=== PATIENT | female | born 1945 | race Caucasian/White ===

== ENCOUNTER 2018-02-02 14:54 | Emergency (ER) | payer MEDICARE, OTHER ==
[~2018-02-02] VITALS: Ht 162.5 cm; Wt 68.0 kg
[2018-02-02] MEDS ORDERED: MYCOLOG CREAM 115 GM T (17:11)
== END 2018-02-02 17:14 | disposition home or self-care (01) ==
LOC: ED 14:54
DX: K94.09 Other complications of colostomy (principal); L30.9 Dermatitis, unspecified

== ENCOUNTER 2018-03-23 13:37 | Inpatient (IN) | payer MEDICARE, OTHER ==
[~2018-03-23] VITALS: Ht 162.5 cm; Wt 78.9 kg
--- NOTE | ~2018-03-23 | EKG ---
[place], [place] ELECTROCARDIOGRAM REPORT NAME: FLAVIO MALLOY UNIT #: [id number] ROOM: 412 DOCTOR: BRANDI DRAFT REPORT BIRTHDATE: [birth year] [facility] Test Date: 2018-03-24 Test Time: 00:52:39 Pat Name: FLAVIO MALLOY Department: Room: [facility] 1 Gender: F [employer] Assistant: Laurie Moore : 1945 Requested By: ADRYAN GUARDADO Order Number: [id number] Reading MD: Kendrick Rosario MD Measurements Intervals [place] Rate: 135 P: DC: QRS: -35 QRSD: 94 T: 87 QT: 387 QTc: 581 Interpretive Statements Atrial fibrillation Inferior infarct, old Prolonged QT interval Electronically Signed On 03-24-2018 10:51:43 PST by Kendrick Rosario MD CM:EKGRPT:ELECTROCARDIOGRAM REPORT 0052 1051 ADRYAN PATE DRAFT REPORT ADRYAN GUARDADO DO
--- NOTE | ~2018-03-23 | PR ---
[place], [place] PROGRESS NOTE NAME: FLAVIO MALLOY UNIT #: [id number] ROOM: 412 DOCTOR: YUDI CARMONA MD BIRTHDATE: [birth year] DOS: 03/27/2018 NEPHROLOGY PROGRESS NOTE REASON FOR FOLLOWUP: Acute kidney injury. SUBJECTIVE: She is doing well. She is still on IV fluids, but reducing. Her weight is up and her renal function has normalized. White blood cell count remains mildly up and hemoglobin is down. Discussions for transfusion are underway. Carbon dioxide still remains low at 14. Potassium is well controlled but creatinine is 0.89, which is the lowest it has been in some time. She does not report any nausea, vomiting or diarrhea at this time. Family is at the bedside. Her niece is encouraging her to eat, but still of little benefit. PHYSICAL EXAMINATION: VITAL SIGNS: Blood pressure 110/64, respiratory rate 18, pulse 82, temperature 98.8. GENERAL: Age appropriate woman lying in bed, multiple wounds, cannot be fully assessed on her back. HEENT: Oral mucous membranes are moist. Normocephalic, atraumatic. SKIN: Turgor is improving. LUNGS: Sound slightly diminished. No wheeze. CARDIOVASCULAR: Regular rate. Mild edema and third spacing has developed. Colostomy bag present. ABDOMEN: Otherwise, soft, no rigidity noted. EXTREMITIES: No clubbing, cyanosis or erythema. LABORATORIES AND DIAGNOSTICS: Sodium 138, potassium 4.1, chloride 111, bicarbonate 14, BUN 24, creatinine 0.89, glucose 172, alkaline phosphatase 722, albumin 2.1. White blood cell count 14.6, hemoglobin 7.8, platelets 314. ASSESSMENT AND PLAN: Acute kidney injury on questionable chronic kidney disease, this has improved with IV fluids. I suspect that she was chronically prerenal because of poor intake. Avoid hypotension, avoid nephrotoxic medications. Avoid SHAMIKA inhibitors or ARBs. Monitor ostomy losses and encourage oral intake and appetite stimulant. Also consider psychiatric consultation if not done. No other nephrologic recommendations at this time. [place], [place] PROGRESS NOTE NAME: FLAVIO MALLOY UNIT #: [id number] ROOM: 412 DOCTOR: YUDI CARMONA MD BIRTHDATE: [birth year] YUDI CARMONA MD CM:AUSTYN 1609 YUDI CARMONA MD 03/28/18 1918 interface
--- NOTE | ~2018-03-23 | PN ---
[place], [place] PROGRESS NOTE NAME: FLAVIO MALLOY UNIT #: [id number] ROOM: 412 DOCTOR: RAJAT BROWN DPM BIRTHDATE: [birth year] DATE: 04/01/18 ADDENDUM TO RESIDENT PROGRESS NOTE: I reviewed with the resident and I am in agreement. RAJAT BROWN DPM CM:PNTRANS 1100 [id number] RAJAT BROWN DPM 07/06/18 0603 DIONISIO FLETCHER MIS.LLR
--- NOTE | ~2018-03-23 | CON ---
[place], [place] REPORT OF CONSULTATION NAME: FLAVIO MALLOY UNIT #: [id number] ROOM: 412 DOCTOR: MENG CHAKRABORTY DPM BIRTHDATE: [birth year] DOS: 03/24/2018 PODIATRY CONSULTATION SUBJECTIVE: This patient is seen as consulted for evaluation of wounds on her great toes as well as her heels. The caregiver with the patient states that she has had dry skin in those areas and they have been applying moisturizing lotion. She states she does have a history of a blood clot in her right leg that according to the caregiver was removed. The patient is somewhat of a poor historian at this point and I got most of the history from her caregiver. PAST MEDICAL HISTORY: Positive for chronic kidney disease, colostomy complication, type 2 diabetes, history of DVT, hyperlipidemia, hypertension, ulcerative colitis. ALLERGIES: No known drug allergies. CURRENT MEDICATIONS: Include Levaquin, Lopressor, Zosyn, heparin, DuoNeb, Zocor, Humalog, vancomycin, Restoril, [place]. OBJECTIVE: Upon lower extremity physical examination, DP pedal pulse is palpable, but PT pedal pulse is barely palpable. There is some rubor noted at the toes with dependency and pallor upon elevation. Skin temperature is cool to toes. There is diminished hair growth noted on both feet. Sensation appears decreased bilaterally. There are superficial open wounds noted at the distal portion of the great toes as well as plantar posterior heels bilaterally. There is some mild eschar in the area, but the wounds are small and did not appear infected. There is no edema or drainage noted. They are dry. There is some dry skin noted throughout both feet. ASSESSMENT: Diabetes mellitus with diabetic ulcer, distal great toe bilaterally as well as bilateral heels. PLAN: Consult is performed. Agree with wound care as prescribed according to wound care recommendation. I will order arterial studies of both lower extremities to evaluate for PAD, offload the heels appropriately. The wounds are not infected at this time. We will reevaluate her tomorrow. Thank you for the opportunity to take part in the care of this patient. [place], [place] REPORT OF CONSULTATION NAME: FLAVIO MALLOY UNIT #: [id number] ROOM: 412 DOCTOR: MENG CHAKRABORTY DPM BIRTHDATE: [birth year] MENG CHAKRABORTY DPM CM:CONSTR:REPORT OF CONSULTATION 1256 03/24/18 7420 interface
--- NOTE | ~2018-03-23 | EKG ---
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
--- NOTE | ~2018-03-23 | PR ---
[place], [place] PROGRESS NOTE NAME: FLAVIO MALLOY UNIT #: [id number] ROOM: 412 DOCTOR: MATHEW BUNDYYUDI Eleno BIRTHDATE: [birth year] DOS: 03/26/2018 NEPHROLOGY PROGRESS NOTE SUBJECTIVE: The patient does not appear herself. Again, her family members are at the bedside and reported that earlier in the day, she was more talkative, but does not appear to be doing this. She has some staring episodes, almost with some dyskinetic movements and almost appears like she does answer very limited to questioning. IV fluids are running. Intake and output do not appear complete, however, as I did give her boluses of albumin yesterday, which do not seem to have been charted. She also does not have all of her ostomy output charted. There was 200 noted overnight, but nothing yet for day shift. No other weights have been ordered or recorded. OBJECTIVE: VITAL SIGNS: 110/62 which is significantly better than yesterday's values as low as 80/58 but overnight did drop into the 90s/50s. She is afebrile, heart rates in the 70s, respiratory rate 18. GENERAL: Chronically ill appearing, lying in bed, deconditioned. She does not appear to be in any respiratory distress, however, is lying down. Speech is limited. Insight is limited. HEART: Irregularly irregular, mild scattered rhonchi. NECK: No JVD or bruits. No appreciable edema is present. SKIN: Otherwise, warm without diffuse rashes. LABORATORY DATA AND DIAGNOSTICS: White blood cell count 14.1, down trending still slowly; hemoglobin 8, also down trending; platelets 313, also down trending. Sodium 135, trending up; potassium 3.8, chloride 107, bicarbonate 16, BUN 30, creatinine 1.0, calcium 8.4. ASSESSMENT AND PLAN: Acute kidney injury in the past, now improving. Some mild chronic kidney disease was possible, but it seems that she might have been just chronically dehydrated and had a prolonged prerenal state. Sediment was unremarkable. IV fluids to keep her blood pressure supported and keep her MAP greater than 65-70 and keep systolics greater than 100. Avoid significant antihypertensive medications. Avoid nephrotoxic medications. GI is following. Monitor ostomy losses and encourage intake and perhaps a dietary supplement or appetite stimulant, may be reasonable. Also psychiatric or neurologic consultation if not already done. There are no further nephrologic recommendations. [place], [place] PROGRESS NOTE NAME: FLAVIO MALLOY UNIT #: [id number] ROOM: [facility] DOCTOR: YUDI CARMONA MD BIRTHDATE: [birth year] YUDI CARMONA MD CM:PNTRANS 02 YUDI CARMONA MD 03/27/18 0055 interface
--- NOTE | ~2018-03-23 | CON ---
[place], [place] REPORT OF CONSULTATION NAME: FLAVIO MALLOY UNIT #: [id number] ROOM: 412 DOCTOR: LUISITO LAN MD BIRTHDATE: [birth year] DOS: HISTORY OF PRESENT ILLNESS: This is a 72-year-old patient who was presented with hypertension, lethargy, failure to thrive, diabetes mellitus, ulcerative colitis, coronary artery disease and she has been protein calorie malnutrition. I have been asked for a possible PEG tube placement. PAST MEDICAL HISTORY: Colostomy and complication, chronic renal disease, diabetes mellitus and hypertension all reviewed. PAST SURGICAL HISTORY: Cholecystectomy, appendectomy, total colectomy, CABG, total knee prosthesis. SOCIAL HISTORY: Nonsmoker, nonalcohol consumer. FAMILY HISTORY: Noncontributory. ALLERGIES: No known medications. MEDICATIONS: Medication list has been reviewed including pantoprazole, sucralfate, amongst the other on iron supplementation. REVIEW OF SYSTEMS: In general, cannot be obtained from her. No cognitive participation. PHYSICAL EXAMINATION: VITAL SIGNS: Stable. HEENT: Head No normal as normocephalic, nontraumatic. Mouth and buccal mucosa dry. NECK: Supple, no thyromegaly. CHEST: Symmetric anatomy, equal expansion. Few scattered rhonchi. HEART: Normal sinus rhythm, no gallop, no murmur. ABDOMEN: Soft, no hepato-organomegaly plus ileostomy in place versus colostomy. Details of surgery not known to me. EXTREMITIES: Pedal edema, venous stasis. NEUROLOGIC: Alert and disoriented. LABORATORY DATA: Reviewed, records reviewed. Latest lab results have been reassessed. Latest Comprehensive metabolic panel, GFR greater than 60. Electrolytes borderline normal. Liver function test, alkaline phosphatase elevation. CBC: White blood cell 9, H and H 8 and 26, platelet count of 113. All has been noticed. CT scan of the abdomen and pelvis has been reviewed. No acute pathology has been reported. IN SUMMARY: Multiple ventral hernias, right small pleural effusion, nonobstructing stones in the kidneys, all has been recognized. PLAN AND DISCUSSION: We will proceed with PEG tube. [place], [place] REPORT OF CONSULTATION NAME: FLAVIO MALLOY UNIT #: [id number] ROOM: 412 DOCTOR: LUISITO LAN MD BIRTHDATE: [birth year] LUISITO LAN MD CM:CONSTR:REPORT OF CONSULTATION 1423 04/01/18 0459 interface
--- NOTE | ~2018-03-23 | PR ---
[place], [place] PROGRESS NOTE NAME: FLAVIO MALLOY UNIT #: [id number] ROOM: 412 DOCTOR: DANNY BUNDY,ALEXSANDRA BIRTHDATE: [birth year] DOS: 03/25/2018 REASON FOR VISIT: Hypertension, elevated troponin and atrial fibrillation. HISTORY OF PRESENT ILLNESS: The patient denies any chest pain or shortness of breath but she has some problems with dysphagia. She had upper endoscopy yesterday. Denies any chest pain or palpitations. No dizziness, no PND, orthopnea, no palpitations. REVIEW OF SYSTEMS: Review of the 8 systems negative except as mentioned above. RHYTHM STRIPS: The patient in atrial fibrillation with controlled ventricular rate. PHYSICAL EXAMINATION: VITAL SIGNS: Blood pressure 98/58, pulse 76, respiration rate is 14, weight 69.9 kilos. GENERAL: The patient is alert, comfort, no acute distress. HEENT: Pupils are round and equal. Tongue was moist. NECK: Supple, no distended neck veins, no carotid bruit. CHEST: Symmetrical, nontender. LUNGS: A few scattered rhonchi. HEART: Irregularly irregular, grade 1/6 systolic murmur. ABDOMEN: Nontender. Bowel sounds normal. EXTREMITIES: Showed no edema. Distal pulses are palpable. SKIN: Warm and dry. MEDICATIONS AND ALLERGIES: Reviewed. IMPRESSION: 1. Borderline elevation of troponin due to acute renal failure. 2. Atrial fibrillation with controlled ventricular rate. 3. Hypertension. Currently, blood pressure is low. 4. Anemia. 5. Pneumonia. 6. History of coronary artery disease. 7. Cardiomyopathy, EF 40% by 2D echo, no acute congestive heart failure. 8. Diabetes type 2. RECOMMENDATIONS: 1. Currently, blood pressure and heart rates are relatively stable. 2. We can resume her heparin. 3. We need to discuss with the family regarding long-term anticoagulation. The patient has a high CHADS-VASc score as well as high HAS-BLED score for bleeding. 4. Supplement potassium for her mild hypokalemia. 5. There is no family at bedside at the time of examination. 6. The patient had some trouble with swallowing the tablets. If she cannot take a p.o. medication, we need to switch them to IV medications tomorrow. [place], [place] PROGRESS NOTE NAME: FLAVIO MALLOY UNIT #: [id number] ROOM: [facility] DOCTOR: ALEXSANDRA DELGADO MD BIRTHDATE: [birth year] ALEXSANDRA DELGADO MD CM:AUSTYN 22 5 ALEXSANDRA DELGADO MD 03/26/1825 interface
--- NOTE | ~2018-03-23 | CON ---
[place], [place] REPORT OF CONSULTATION NAME: FLAVIO MALLOY UNIT #: [id number] ROOM: 412 DOCTOR: LUISITO LAN MD BIRTHDATE: [birth year] DOS: 03/24/2018 GASTROINTESTINAL CONSULTATION REPORT HISTORY OF PRESENT ILLNESS: A 72-year-old patient who presented with chief complaint of multi-distress, among which has been esophageal dysphagia with nausea sensation. PAST MEDICAL HISTORY: Chronic renal disease, diabetes mellitus, DVTs, hyperlipidemia, hypertension, and history of ulcerative colitis. PAST SURGICAL HISTORY: Colectomy, knee cap repair, total knee, appendectomy, cholecystectomy. FAMILY HISTORY: Noncontributory. ALLERGIES: No known medications. MEDICATIONS: Has been reviewed. The patient has been on sucralfate, iron supplementation, loperamide, and pantoprazole daily. REVIEW OF SYSTEMS: In general: HEENT: Denies double vision or blurred vision. RESPIRATORY: Admits some shortness of breath. CARDIOVASCULAR: Denies chest pain. DIGESTIVE SYSTEM: Dysphagia. PHYSICAL EXAMINATION: VITAL SIGNS: Stable, difficulty with communication in detail; however, participating. HEENT: Nontraumatic. Mouth and buccal mucosa dry. NECK: Supple, no thyromegaly, no cervical lymphadenopathy. CHEST: Symmetric anatomy, equal expansion. Few scattered rhonchi. HEART: Normal sinus rhythm, no gallop, no murmur. ABDOMEN: Soft. No hepato-organomegaly, status post previous colectomy, colostomy and complications, scars. Colostomy is functional. Bowel sounds present. EXTREMITIES: No pedal edema. Stasis dermatitis noticed. NEUROLOGIC: Alert, oriented. IMPRESSION: Dysphagia, ruling out the etiology of the patient is going to undergo EGD with balloon dilation and necessary management as the diagnosis defined by endoscopy. OTHER ADJUNCTIVE DIAGNOSES: As outlined in paragraph of past medical and surgical history as above. Supportive therapy otherwise today we are going to proceed with panendoscopy. INDICATIONS: The patient has presented with dysphagia, undergoing investigation. [place], [place] REPORT OF CONSULTATION NAME: FLAVIO MALLOY UNIT #: [id number] ROOM: 412 DOCTOR: LUISITO LAN MD BIRTHDATE: [birth year] PROCEDURE: Today's procedure part of investigation is panendoscopy plus balloon dilation of esophagus. PREMEDICATION: Propofol. SCOPE: Olympus forward-viewing gastroscope Q10 video. REPORT: After putting the patient in left lateral position and application of lubricant to the scope, scope was introduced. Thereafter, under direct visualization, advanced through the length of esophagus without difficulty. Cervical esophageal stricture, which is benign noticed as well. This continues at distal esophagus where there is a hiatal hernia noticed. Gastric pouch was entered. Gastritis seen. Duodenal bulb, second and third part within normal limits. A balloon size 20 was introduced into the gastric pouch and in inflated form, orally extracted. Highest resistance at distal esophagus and upper esophagus, particularly was noticed. Therefore, we were only able utilize to size 19 of the balloon 20. The patient tolerated the procedure well. IMPRESSION: Esophageal stricture, status post balloon dilation, gastritis, hiatal hernia. PLAN AND DISCUSSION: We are going to start him on soft diet to see if this is going to help her. Thank you very much indeed. Other workups are under investigation and evaluation. Case was discussed with the family, content with the findings and management. LUISITO LAN MD CM:CONSTR:REPORT OF CONSULTATION 1702 04/19/18 0750 interface
--- NOTE | ~2018-03-23 | PR ---
[place], [place] PROGRESS NOTE NAME: FLAVIO MALLOY UNIT #: [id number] ROOM: 412 DOCTOR: MENG CHAKRABORTY DPM BIRTHDATE: [birth year] DOS: 04/03/2018 SUBJECTIVE: This patient is seen today for continued followup of ulcerations both great toes and plantar posterior portion of her heels. She really has no complaints in regards to her feet. OBJECTIVE: Neurovascular status is unchanged. Mild dependent edema noted both lower extremities. Both great toes appear resolved at this time. Minimal eschar noted. Plantar posterior heels are stable with no signs of infection. No purulent drainage or malodor. No erythema or increased temperature. ASSESSMENT: Improving ulcerations, bilateral feet. PLAN: Evaluation and management. Continue with local care and offloading. The patient is improving with both feet. Continue to follow while in the hospital. MENG CHAKRABORTY DPM CM:AUSTYN 1137 1212 MENG CHAKRABORTY DPM 04/03/18 1213 interface
--- NOTE | ~2018-03-23 | PR ---
[place], [place] PROGRESS NOTE NAME: FLAVIO MALLOY UNIT #: [id number] ROOM: [facility] DOCTOR: RENATO MALDONADO MD BIRTHDATE: [birth year] DOS: 03/31/2018 CARDIOLOGY PROGRESS NOTE SUBJECTIVE: The patient was seen at her bedside this morning, 03/31/2018, for followup of her atrial fibrillation with mild elevation in troponin and pneumonia. The patient is still eating poorly and is scheduled to have a PEG tube placed today. She denies any chest pain, but does complain that she feels cold. She does have a dry cough. PHYSICAL EXAMINATION: VITAL SIGNS: Today, her pulse is 100 and irregularly irregular, blood pressure is 109/36. GENERAL: She is afebrile. She weighs 79 kg and has a body mass index of 29.9. NECK: Supple. There is no jugular distention. Carotids are full. LUNGS: Respirations are unlabored. She has decreased breath sounds at the bases. HEART: Has an irregularly irregular rhythm. There are no murmurs or gallops. EXTREMITIES: Showed no edema. LABORATORY DATA: Hemoglobin is 8.6, white count 9900, platelet count 313,000. Sodium is 135, potassium 3.4, BUN 16, creatinine 0.77. IMPRESSION: 1. Permanent atrial fibrillation with controlled ventricular response. 2. Anemia. 3. History of ulcerative colitis, status post partial colectomy. 4. Status post recent dilation of an esophageal stricture. 5. Poor oral intake. PEG tube pending. 6. Possible pneumonia. PLAN: She is to have the PEG tube placed today. After that, I would strongly consider adding a direct oral anticoagulant to her regimen since her CHADS-VASc score is 6 and she has a very high risk approaching 10% per year of stroke if she is not anticoagulated. Since she does have a history of colitis, we will have to monitor her anemia carefully, but I still think that a blood transfusion would be less risky than a stroke. We will probably have her start the anticoagulant day after her PEG tube placement. We will continue to follow her with her other physicians. I thank the hospitalist physicians for asking our advice regarding her care. [place], [place] PROGRESS NOTE NAME: FLAVIO MALLOY UNIT #: [id number] ROOM: 412 DOCTOR: RENATO MALDONADO MD BIRTHDATE: [birth year] RENATO MALDONADO MD CM:PNTRANS [id number] 0128 RENATO MALDONADO MD 04/03/18 1328 interface
--- NOTE | ~2018-03-23 | PR ---
[place], [place] PROGRESS NOTE NAME: FLAVIO MALLOY UNIT #: [id number] ROOM: 412 DOCTOR: RENATO MALDONADO MD BIRTHDATE: [birth year] DOS: 04/03/2018 CARDIOLOGY PROGRESS NOTE SUBJECTIVE: The patient was seen at her bedside today, 04/03/2018, for followup of atrial fibrillation and mild elevation in troponin in the setting of pneumonia. A PEG tube was placed on 03/31/2018 and she is tolerating enteral feedings. She is breathing easily. Her only complaint is that she has significant pain at the site of a sacral decubitus, which was debrided earlier today. She was started back on Xarelto on 04/01/2018 and is tolerating that well. PHYSICAL EXAMINATION: VITAL SIGNS: On exam today, her pulse is 82 and irregularly irregular. Blood pressure is 128/70. She is afebrile. NECK: Supple. She has no jugular distention. CHEST: Clear. HEART: Irregularly irregular rhythm. EXTREMITIES: Showed 1+ edema bilaterally. She does seem to be doing well from a cardiac standpoint and her atrial fibrillation is controlled. She is back on anticoagulants. Her problem list includes: 1. Permanent atrial fibrillation with controlled ventricular response. 2. History of ulcerative colitis, status post partial colectomy. 3. Anemia. 4. Status post recent dilation of the esophagus for treatment of an esophageal stricture. 5. Poor oral intake. The patient is receiving enteral feeding through a PEG tube that was inserted on 03/31/2018. 6. Possible pneumonia. PLAN: No other cardiac workup is planned at this time. We will remain available to see her as needed, but we will sign off for now. I thank the hospitalist physicians for asking our advice regarding her care. [place], [place] PROGRESS NOTE NAME: FLAVIO MALLOY UNIT #: [id number] ROOM: 412 DOCTOR: RENATO MALDONADO MD BIRTHDATE: [birth year] RENATO MALDONADO MD CM:PNTRANS 1515 0128 RENATO MALDONADO MD 04/04/18 1419 interface
--- NOTE | ~2018-03-23 | PR ---
[place], [place] PROGRESS NOTE NAME: FLAVIO MALLOY UNIT #: [id number] ROOM: 412 DOCTOR: RENATO MALDONADO MD BIRTHDATE: [birth year] DOS: 03/27/2018 CARDIOLOGY PROGRESS NOTE SUBJECTIVE: The patient was seen at her bedside today, 03/27/2018, with her niece in attendance. She is a 72-year-old woman who has a history of chronic kidney disease, diabetes, hypertension, hyperlipidemia, ulcerative colitis, and coronary artery disease. She was brought to the hospital due to poor oral intake, nausea, vomiting, and dyspnea. Her chest x-ray showed linear atelectasis, and she is being treated for pneumonia. She also does have worsening anemia. She did undergo an endoscopy on 03/24/2018 which showed esophageal stricture with hiatal hernia. Blood counts have been gradually falling, and she did require a transfusion on this admission. She also is noted to have atrial fibrillation, which has been labeled paroxysmal. She is not anticoagulated at this time. The patient states that she still has a minimally productive cough. She is quite weak. Her niece stays at home. She gets around with a walker, but slowly. PHYSICAL EXAMINATION: VITAL SIGNS: Today, her pulse is 82 and irregularly irregular. Blood pressure is 110/64. She is afebrile. NECK: Supple. She has no jugular distention. Carotids are full. LUNGS: Respirations are unlabored. She has coarse bibasilar breath sounds. HEART: Has an irregularly irregular rhythm. She has no murmurs or gallops. ABDOMEN: Benign. EXTREMITIES: Showed trace edema. IMPRESSION: 1. Atrial fibrillation with controlled ventricular response. 2. Anemia. 3. History of ulcerative colitis. 4. Status post recent dilation of an esophageal stricture. 5. Dysphagia. 6. Possible pneumonia. PLAN: I would continue supportive care for now. She will require extensive physical therapy to get her strength back. Once her hemoglobins have stabilized, we can decide whether or not she should be on long-term anticoagulation, but with her history of ulcerative colitis. This may be very problematic. We thank the hospitalist physicians for asking our advice regarding her care. [place], [place] PROGRESS NOTE NAME: FLAVIO MALLOY UNIT #: [id number] ROOM: 412 DOCTOR: RENATO MALDONADO MD BIRTHDATE: [birth year] RENATO MALDONADO MD CM:PNTRANS [id number] RENATO MALDONADO MD 03/27/182052 interface
--- NOTE | ~2018-03-23 | PN ---
[place], [place] PROGRESS NOTE NAME: FLAVIO MALLOY UNIT #: [id number] ROOM: 412 DOCTOR: RAJAT BROWN DPM BIRTHDATE: [birth year] DATE: 04/02/18 ADDENDUM TO RESIDENT PROGRESS NOTE: I reviewed with the resident and I am in agreement. RAJAT BROWN DPM CM:PNTRANS [id number] RJAAT BROWN DPM 07/06/18 0604 DIONISIO FLETCHER MIS.LLR
--- NOTE | ~2018-03-23 | PR ---
[place], [place] PROGRESS NOTE NAME: FLAVIO MALLOY UNIT #: [id number] ROOM: 412 DOCTOR: SHANNAN MCKINNEY DPM BIRTHDATE: [birth year] DOS: 03/25/2018 SUBJECTIVE: The patient was seen for followup of ulcerations to the bilateral heels, superficial in nature on bilateral hallux, superficial eschar. No signs of fluctuance. No erythema or drainage. ASSESSMENT: Diabetic ulcerations, bilateral hallux and bilateral heels PLAN: Evaluation and management. Continue offloading and conservative care. We will reappoint with the patient accordingly. SHANNAN MCKINNEY DPM CM:AUSTYN [phone] SHANNAN MCKINNEY DPM 03/25/18 1118 interface
--- NOTE | ~2018-03-23 | PR ---
[place], [place] PROGRESS NOTE NAME: FLAVIO MALLOY UNIT #: [id number] ROOM: 412 DOCTOR: RENATO MALDONADO MD BIRTHDATE: [birth year] DOS: 04/01/2018 CARDIOLOGY PROGRESS NOTE SUBJECTIVE: The patient was seen at her bedside today 04/01/2018 for followup of her atrial fibrillation with mild elevation in troponin and pneumonia. A PEG tube was placed on 03/31/2018 and the patient tolerated the procedure well. She is now receiving feedings through the PEG tube. She is breathing easily and has no apparent complaints. PHYSICAL EXAMINATION: VITAL SIGNS: Her pulse is 67 and irregularly irregular. Blood pressure is 104/57. She is afebrile. NECK: Supple. She has no jugular distention. Carotids are full. LUNGS: Respirations are unlabored. Her chest is clear. HEART: Has an irregularly irregular rhythm without murmurs or gallops. EXTREMITIES: Showed no edema. IMPRESSION: 1. Permanent atrial fibrillation with controlled ventricular response. 2. History of ulcerative colitis, status post partial colectomy. 3. Anemia. 4. Status post recent dilation of esophageal stricture. 5. Poor oral intake. The patient is receiving parenteral feeding through a PEG tube that was inserted on 03/31/2018. 6. Possible pneumonia. PLAN: We will start her on oral anticoagulation today since she does have a CHADS-VASc score of 6 and is at high risk for stroke if she is not anticoagulated. We will have to monitor her blood counts carefully. However, her hemoglobin is currently 9.9 and she seems hemodynamically stable. I will place her on Xarelto once a day and stop other anticoagulants and antiplatelet agents. We will continue to follow her intermittently with her other physicians. I thank the hospitalist physicians for asking our advice regarding her care. [place], [place] PROGRESS NOTE NAME: FLAVIO MALLOY UNIT #: [id number] ROOM: 412 DOCTOR: RENATO MALDONADO MD BIRTHDATE: [birth year] RENATO MALDONADO MD CM:PNTRANS [phone] RENATO MALDONADO MD 04/02/18 0915 interface
--- NOTE | ~2018-03-23 | PR ---
[place], [place] PROGRESS NOTE NAME: FLAVIO MALLOY UNIT #: [id number] ROOM: 412 DOCTOR: YUDI CARMONA MD BIRTHDATE: [birth year] DOS: 03/25/2018 SUBJECTIVE: The patient is lying in bed, appears weak and debilitated, continues on antibiotics, did not receive any pain medications, but did receive some Restoril last night. This morning, the pressures were on the low side. She did receive 12.5 mg of metoprolol, but IV fluids were resumed after her endoscopy was finished yesterday, showed esophageal stricture and hiatal hernia, appears to be a cervical esophageal stricture, benign gastric pouch, showed some gastritis. Soft diet was ordered. Balloon dilatation was done. She did have lower extremity Dopplers, which showed no high grade stenosis, diffuse atherosclerosis. A venous Doppler showed no DVT. In regards to fluid, she is currently on normal saline at 100 mL an hour. Her white count is improving again from 20,000 to 15,000. Her hemoglobin is 8.5 and slowly trending downward still. Her sodium has improved and stable at 133. Creatinine is 1.17, which is the best it has been in many days. Glucose is overall slightly labile, but stable. Culture from the urine is no growth at this point. Blood cultures yesterday also no growth. Urine in the [place] is starting to berry picker with 250 output overnight and 250 in evening. Blood pressures this morning now were 82/58. I ordered 250 mL of albumin in addition to the fluids that she has running. Her last albumin level on was 2.1 and her intake remains poor. Breathing and oxygenation remained stable on room air and 2 liters nasal cannula. Rest of the exam is unchanged from yesterday, still has a lot of back side pain and ulcerations. Her assessment and plan and laboratories were all reviewed as above. Acute kidney injury on chronic kidney disease, overall, renal function improving. Creatinine below her baseline with IV fluids. I suspect that her chronic kidney disease was more of a reflection of prolonged prerenal and subacute kidney injury. Sediment is unremarkable at this point. Continue gentle IV fluids and support blood pressure to keep systolic greater than 100 and MAPs greater than 165 to 170. Limited antihypertensive medications and continue antibiotics until results are known. I still suspect that there may have been some aspiration at play here. GI is following her. Defer dietary choices to them. Watch colostomy and watery output from her ostomy. Continue on IV fluids. Encourage out of bed and exercise with PT/OT. Perhaps a psychiatric consultation for depression may be reasonable as well if not already considered. Cardiology is also following the patient. [place], [place] PROGRESS NOTE NAME: FLAVIO MALLOY UNIT #: [id number] ROOM: 412 DOCTOR: YUDI CARMONA MD BIRTHDATE: [birth year] YUDI CARMONA MD CM:PNJEREL [phone] 5 YUDI CARMONA MD 03/26/18 0123 interface
--- NOTE | ~2018-03-23 | O ---
[place], [place] OPERATIVE NOTE NAME: FLAVIO MALLOY UNIT #: [id number] ROOM: 412 DOCTOR: EDYTA BUNDY,LUISITO BIRTHDATE: [birth year] DOS: 03/31/2018 GASTROENDOSCOPIC REPORT INDICATIONS: The patient has presented with neurogenic dysphagia, failure to thrive, and protein-calorie malnutrition. I have been asked for placement of a PEG tube. PROCEDURE: Today's procedure part of investigation is percutaneous endoscopic gastrostomy EGD. PREMEDICATION: Propofol. SCOPE: Olympus forward-viewing gastroscope Q10 video. REPORT: After putting the patient in supine position, scope was introduced. Thereafter, under direct visualization, advanced through the length of esophagus into the gastric pouch. Patency of pyloric ring was assured. Anterior abdominal wall, aseptically was prepped in mid gastric point. Best transillumination sign was noticed. The area was injected in subxiphoid left leniency and after that trocar was introduced in the same spot. Guidewire was advanced through the center of it, grasped with forceps orally extracted. Gastrostomy tube [place] 20 was anchored to it, orally pulled. Recovered from the surface of the abdomen. Anchors placed, patency checked, tolerated the procedure well. IMPRESSION: Percutaneous endoscopic gastrostomy for failure to thrive, protein-calorie malnutrition. PLAN AND DISCUSSION: Glucerna at 20 mL per hour along with H2O flush of 30 mL q. 2 hours flush and increasing the Glucerna to 30 mL by tomorrow morning and by tomorrow afternoon elevating to 40 mL per hour and adjustment thereafter. LUISITO LAN MD CM:OPRECORD:OPERATIVE NOTE 1442 1502 LUISITO LAN MD 03/31/18 1501 interface
[~2018-03-23 13:37] MED LIST: MYCOLOG CREAM 115 GM T
[2018-03-23 13:42] VITALS: BP 112/37
[2018-03-23 14:27] LABS: HEMATOCRIT 34.6 % (37.0-47.0); HEMOGLOBIN 11.4 g/dl (12.0-16.0); MEAN CELL VOLUME 84.8 fl (81.0-99.0); MEAN CORPUSCULAR HGB 27.9 pg (27.0-31.0); MEAN CORPUSCULAR HGB CONC 32.9 g/dl (33.0-37.0); MEAN PLATELET VOLUME 9.7 fl (9.6-12.3); PLATELET COUNT AUTOMATED 565 10*3/uL (130-400); RED BLOOD COUNT 4.08 10*6/uL (4.10-5.10); RED CELL DISTRI WIDTH 15.5 % (0-14.5); WHITE BLOOD COUNT 16.8 10*3/uL (4.8-10.8)
[2018-03-23 14:29] VITALS: BP 112/57
[2018-03-23 14:35] LABS: ACT PARTIAL THROMBO TIME 24.9 SECONDS (20.8-31.5)
[2018-03-23 14:43] LABS: ALBUMIN 2.6 gm/dl (3.1-4.5); CREATININE 2.03 mg/dL (0.55-1.02); POTASSIUM 4.3 mmol/L (3.5-5.1); TOTAL PROTEIN 7.2 gm/dL (6.4-8.2)
[2018-03-23 14:46] LABS: PLATELET SUFFICIENCY HIGH (NORMAL); TOTAL CELLS COUNTED 100 #CELLS
[2018-03-23 14:52] LABS: TROPONIN I 0.195 ng/ml (<0.045)
[2018-03-23 15:00] VITALS: BP 113/49
[2018-03-23 16:00] VITALS: BP 107/41
[2018-03-23 17:25] VITALS: BP 116/56
[2018-03-23] MEDS ORDERED: FLUOXETINE HCL60 MG PO (18:03)
[2018-03-23] MEDS ORDERED: FERROUS GLUCON324 M1 PO (18:03)
[2018-03-23] MEDS ORDERED: METOCLOPRAMIDE10 MG PO (18:04)
[2018-03-23] MEDS ORDERED: LOPRESSOR25 MG PO (18:04)
[2018-03-23] MEDS ORDERED: PROTONIX TR40 M1 PO (18:06)
[2018-03-23] MEDS ORDERED: CARAFATE1 G1 PO (18:07)
[2018-03-23] MEDS ORDERED: SODIUM BICARBO650 MG PO (18:07)
[2018-03-23] MEDS ORDERED: CREON DR 24,001 EACH PO (18:09)
[2018-03-23] MEDS ORDERED: ZOCOR20 MG PO (18:14)
[2018-03-23 20:00] VITALS: BP 102/48
[2018-03-24] VITALS (10 sets, daily range): BP systolic 90–121; BP diastolic 38–77
[2018-03-24 06:40] LABS: BILIRUBIN 1+ (NEGATIVE); BLOOD 1+ (NEGATIVE); CLARITY SL CLOUDY (CLEAR); COLOR YELLOW (YELLOW); GLUCOSE NEGATIVE (NEGATIVE); KETONE TRACE (NEGATIVE); LEUKO ESTERASE NEGATIVE (NEGATIVE); NITRITE NEGATIVE (NEGATIVE); SPECIFIC GRAVITY 1.015 (1.005-1.030); UROBILINOGEN 0.2 E.U./dl (0.2-1.0)
[2018-03-24 07:00] LABS: BASO % 0.1 % (0.0-1.0); HEMOGLOBIN 9.5 g/dl (12.0-16.0); LYMPH % 4.9 % (27.0-41.0); MEAN CELL VOLUME 83.6 fl (81.0-99.0); MEAN CORPUSCULAR HGB 28.3 pg (27.0-31.0); MEAN CORPUSCULAR HGB CONC 33.8 g/dl (33.0-37.0); MEAN PLATELET VOLUME 9.3 fl (9.6-12.3); MONO # 0.7 10*3/uL (0.1-1.0); MONO % 3.2 % (3.0-9.0); NEUT # 18.8 10*3/uL (2.3-7.9); NEUT % 90.5 % (47.0-73.0); PLATELET COUNT AUTOMATED 466 10*3/uL (130-400); RED BLOOD COUNT 3.36 10*6/uL (4.10-5.10); RED CELL DISTRI WIDTH 15.9 % (0-14.5); WHITE BLOOD COUNT 20.8 10*3/uL (4.8-10.8)
[2018-03-24 07:03] LABS: HEMATOCRIT 28.1 % (37.0-47.0)
[2018-03-24 07:13] LABS: RBC 16-20 rbc/hpf (0-2)
[2018-03-24 07:14] LABS: YEAST 1+
[2018-03-24 07:14] LABS: ALBUMIN 2.1 gm/dl (3.1-4.5); CREATININE 1.35 mg/dL (0.55-1.02); FREE T4 1.84 ng/dl (0.76-1.46); PHOSPHOROUS 2.7 mg/dL (2.5-4.9); POTASSIUM 3.8 mmol/L (3.5-5.1); TOTAL PROTEIN 5.7 gm/dL (6.4-8.2)
[2018-03-24 07:15] LABS: BACTERIA 1+; URIC ACID CRYSTALS 2+
[2018-03-24 07:16] LABS: WBC 0-2 wbc/hpf (0-5)
[2018-03-24 07:19] LABS: THYROID STIM HORMONE (HS) 1.07 uIU/ml (0.358-4.75)
[2018-03-24 07:33] LABS: TOTAL CELLS COUNTED 100 #CELLS
[2018-03-24 07:34] LABS: PLATELET SUFFICIENCY HIGH (NORMAL)
[2018-03-24 08:55] LABS: VITAMIN D, 25-HYDROXY 15.5 ng/mL (30-100)
[2018-03-25] VITALS (7 sets, daily range): BP systolic 78–125; BP diastolic 30–59
[2018-03-25 05:40] LABS: CREATININE 1.17 mg/dL (0.55-1.02); POTASSIUM 3.2 mmol/L (3.5-5.1)
[2018-03-25 06:13] LABS: HEMATOCRIT 26.5 % (37.0-47.0); HEMOGLOBIN 8.5 g/dl (12.0-16.0); MEAN CORPUSCULAR HGB 27.9 pg (27.0-31.0); MEAN CORPUSCULAR HGB CONC 32.1 g/dl (33.0-37.0); MEAN PLATELET VOLUME 9.7 fl (9.6-12.3); PLATELET COUNT AUTOMATED 360 10*3/uL (130-400); RED BLOOD COUNT 3.05 10*6/uL (4.10-5.10); RED CELL DISTRI WIDTH 15.9 % (0-14.5); WHITE BLOOD COUNT 15.8 10*3/uL (4.8-10.8)
[2018-03-25 06:31] LABS: MEAN CELL VOLUME 86.9 fl (81.0-99.0)
[2018-03-25 06:54] LABS: PLATELET SUFFICIENCY NORMAL (NORMAL); TOTAL CELLS COUNTED 100 #CELLS
[2018-03-26] VITALS: BP 98/54
[2018-03-26 06:22] LABS: BASO % 0.1 % (0.0-1.0); EOS % 0.2 % (1.0-4.0); HEMATOCRIT 25.5 % (37.0-47.0); LYMPH # 0.7 10*3/uL (1.3-4.4); LYMPH % 5.2 % (27.0-41.0); MEAN CELL VOLUME 89.2 fl (81.0-99.0); MEAN CORPUSCULAR HGB CONC 31.4 g/dl (33.0-37.0); MEAN PLATELET VOLUME 9.6 fl (9.6-12.3); MONO # 0.6 10*3/uL (0.1-1.0); NEUT # 12.6 10*3/uL (2.3-7.9); NEUT % 89.2 % (47.0-73.0); PLATELET COUNT AUTOMATED 313 10*3/uL (130-400); RED BLOOD COUNT 2.86 10*6/uL (4.10-5.10); RED CELL DISTRI WIDTH 16.1 % (0-14.5); WHITE BLOOD COUNT 14.1 10*3/uL (4.8-10.8)
[2018-03-26 06:45] LABS: BUN 30 mg/dl (7-24); CHLORIDE 107 mmol/L (98-107); CREATININE 1.01 mg/dL (0.55-1.02); POTASSIUM 3.8 mmol/L (3.5-5.1); SODIUM 135 mmol/L (136-145)
[2018-03-26 08:00] VITALS: BP 90/68
[2018-03-26 12:00] VITALS: BP 100/59
[2018-03-26 16:00] VITALS: BP 110/62
[2018-03-26 20:00] VITALS: BP 101/43
[2018-03-27] VITALS: BP 113/68
[2018-03-27 07:08] LABS: HEMOGLOBIN 7.8 g/dl (12.0-16.0); MEAN CELL VOLUME 89.6 fl (81.0-99.0); MEAN CORPUSCULAR HGB CONC 31.2 g/dl (33.0-37.0); MEAN PLATELET VOLUME 9.6 fl (9.6-12.3); PLATELET COUNT AUTOMATED 314 10*3/uL (130-400); RED BLOOD COUNT 2.79 10*6/uL (4.10-5.10); RED CELL DISTRI WIDTH 16.5 % (0-14.5); WHITE BLOOD COUNT 14.6 10*3/uL (4.8-10.8)
[2018-03-27 07:34] LABS: TOTAL CELLS COUNTED 100 #CELLS
[2018-03-27 07:35] LABS: PLATELET SUFFICIENCY NORMAL (NORMAL)
[2018-03-27 07:41] LABS: ALBUMIN 2.1 gm/dl (3.1-4.5); ALKALINE PHOSPHATASE 722 U/L (45-117); BUN 24 mg/dl (7-24); CHLORIDE 111 mmol/L (98-107); CREATININE 0.89 mg/dL (0.55-1.02); POTASSIUM 4.1 mmol/L (3.5-5.1); SGOT/AST 34 IU/L (3-35); SGPT/ALT 28 U/L (12-78); SODIUM 138 mmol/L (136-145); TOTAL PROTEIN 5.6 gm/dL (6.4-8.2)
[2018-03-27 08:00] VITALS: BP 110/64
[2018-03-27 12:00] VITALS: BP 109/62
[2018-03-27 16:00] VITALS: BP 101/43
[2018-03-27 20:00] VITALS: BP 102/54
[2018-03-28] VITALS: BP 116/69
[2018-03-28 06:26] LABS: BASO % 0.1 % (0.0-1.0); BUN 25 mg/dl (7-24); CHLORIDE 106 mmol/L (98-107); CREATININE 0.96 mg/dL (0.55-1.02); EOS % 0.2 % (1.0-4.0); HEMATOCRIT 29.4 % (37.0-47.0); HEMOGLOBIN 9.5 g/dl (12.0-16.0); LYMPH # 1.4 10*3/uL (1.3-4.4); LYMPH % 8.1 % (27.0-41.0); MEAN CELL VOLUME 87.2 fl (81.0-99.0); MEAN CORPUSCULAR HGB 28.2 pg (27.0-31.0); MEAN CORPUSCULAR HGB CONC 32.3 g/dl (33.0-37.0); MEAN PLATELET VOLUME 9.8 fl (9.6-12.3); MONO # 0.8 10*3/uL (0.1-1.0); MONO % 4.4 % (3.0-9.0); NEUT # 14.8 10*3/uL (2.3-7.9); NEUT % 85.6 % (47.0-73.0); PLATELET COUNT AUTOMATED 335 10*3/uL (130-400); POTASSIUM 4.3 mmol/L (3.5-5.1); RED BLOOD COUNT 3.37 10*6/uL (4.10-5.10); RED CELL DISTRI WIDTH 16.2 % (0-14.5); SODIUM 135 mmol/L (136-145); WHITE BLOOD COUNT 17.2 10*3/uL (4.8-10.8)
[2018-03-28 08:00] VITALS: BP 103/81; BP 119/65
[2018-03-28 12:00] VITALS: BP 112/57
[2018-03-28 16:00] VITALS: BP 82/62
[2018-03-28 20:00] VITALS: BP 90/55
[2018-03-29] VITALS: BP 93/50
[2018-03-29 07:48] LABS: BASO % 0.2 % (0.0-1.0); EOS # 0.1 10*3/uL (0.0-0.4); EOS % 0.8 % (1.0-4.0); HEMATOCRIT 29.4 % (37.0-47.0); HEMOGLOBIN 9.8 g/dl (12.0-16.0); LYMPH # 0.7 10*3/uL (1.3-4.4); LYMPH % 5.7 % (27.0-41.0); MEAN CELL VOLUME 86.5 fl (81.0-99.0); MEAN CORPUSCULAR HGB 28.8 pg (27.0-31.0); MEAN CORPUSCULAR HGB CONC 33.3 g/dl (33.0-37.0); MEAN PLATELET VOLUME 9.7 fl (9.6-12.3); MONO # 0.4 10*3/uL (0.1-1.0); MONO % 3.5 % (3.0-9.0); NEUT # 11.2 10*3/uL (2.3-7.9); NEUT % 88.7 % (47.0-73.0); PLATELET COUNT AUTOMATED 295 10*3/uL (130-400); RED CELL DISTRI WIDTH 16.1 % (0-14.5); WHITE BLOOD COUNT 12.6 10*3/uL (4.8-10.8)
[2018-03-29 08:00] VITALS: BP 112/64
[2018-03-29 08:01] LABS: BUN 21 mg/dl (7-24); CHLORIDE 103 mmol/L (98-107); CREATININE 0.71 mg/dL (0.55-1.02); POTASSIUM 3.5 mmol/L (3.5-5.1); SODIUM 137 mmol/L (136-145)
[2018-03-29 12:00] VITALS: BP 95/59
[2018-03-29 16:00] VITALS: BP 95/42
[2018-03-29 20:00] VITALS: BP 111/60
[2018-03-30] VITALS: BP 121/61
[2018-03-30 08:00] VITALS: BP 104/44
[2018-03-30 10:02] LABS: BASO % 0.1 % (0.0-1.0); EOS % 0.1 % (1.0-4.0); HEMATOCRIT 27.6 % (37.0-47.0); HEMOGLOBIN 9.3 g/dl (12.0-16.0); LYMPH # 0.9 10*3/uL (1.3-4.4); LYMPH % 5.8 % (27.0-41.0); MEAN CELL VOLUME 86.3 fl (81.0-99.0); MEAN CORPUSCULAR HGB 29.1 pg (27.0-31.0); MEAN CORPUSCULAR HGB CONC 33.7 g/dl (33.0-37.0); MEAN PLATELET VOLUME 9.9 fl (9.6-12.3); MONO # 0.8 10*3/uL (0.1-1.0); MONO % 5.2 % (3.0-9.0); NEUT # 13.5 10*3/uL (2.3-7.9); NEUT % 88.1 % (47.0-73.0); PLATELET COUNT AUTOMATED 348 10*3/uL (130-400); WHITE BLOOD COUNT 15.3 10*3/uL (4.8-10.8)
[2018-03-30 10:11] LABS: ALBUMIN 1.8 gm/dl (3.1-4.5); ALKALINE PHOSPHATASE 599 U/L (45-117); BUN 20 mg/dl (7-24); CHLORIDE 98 mmol/L (98-107); CREATININE 0.76 mg/dL (0.55-1.02); POTASSIUM 3.6 mmol/L (3.5-5.1); SGOT/AST 39 IU/L (3-35); SGPT/ALT 39 U/L (12-78); SODIUM 134 mmol/L (136-145); TOTAL PROTEIN 4.6 gm/dL (6.4-8.2)
[2018-03-30 12:00] VITALS: BP 110/56
[2018-03-30 13:12] LABS: IRON 33 ug/dL (50-170); TOTAL IRON BINDING CAPACITY 177 ug/dl (250-450)
[2018-03-30 16:00] VITALS: BP 112/54
[2018-03-30 20:00] VITALS: BP 114/59
[2018-03-31] VITALS (8 sets, daily range): BP systolic 109–128; BP diastolic 36–73
[2018-03-31 06:04] LABS: ALBUMIN 1.8 gm/dl (3.1-4.5); ALKALINE PHOSPHATASE 453 U/L (45-117); BUN 16 mg/dl (7-24); CHLORIDE 99 mmol/L (98-107); CREATININE 0.77 mg/dL (0.55-1.02); POTASSIUM 3.4 mmol/L (3.5-5.1); SGOT/AST 33 IU/L (3-35); SGPT/ALT 33 U/L (12-78); SODIUM 135 mmol/L (136-145); TOTAL PROTEIN 5.1 gm/dL (6.4-8.2)
[2018-03-31 06:07] LABS: BASO % 0.1 % (0.0-1.0); EOS % 0.4 % (1.0-4.0); HEMOGLOBIN 8.6 g/dl (12.0-16.0); LYMPH # 0.8 10*3/uL (1.3-4.4); LYMPH % 8.2 % (27.0-41.0); MEAN CELL VOLUME 88.2 fl (81.0-99.0); MEAN CORPUSCULAR HGB 28.1 pg (27.0-31.0); MEAN CORPUSCULAR HGB CONC 31.9 g/dl (33.0-37.0); MEAN PLATELET VOLUME 9.4 fl (9.6-12.3); MONO # 0.7 10*3/uL (0.1-1.0); NEUT # 8.3 10*3/uL (2.3-7.9); NEUT % 83.6 % (47.0-73.0); PLATELET COUNT AUTOMATED 313 10*3/uL (130-400); RED BLOOD COUNT 3.06 10*6/uL (4.10-5.10); RED CELL DISTRI WIDTH 16.3 % (0-14.5); WHITE BLOOD COUNT 9.9 10*3/uL (4.8-10.8)
[2018-04-01] VITALS: BP 129/85
[2018-04-01 05:58] LABS: HEMATOCRIT 30.7 % (37.0-47.0); HEMOGLOBIN 9.9 g/dl (12.0-16.0); MEAN CORPUSCULAR HGB 28.4 pg (27.0-31.0); MEAN CORPUSCULAR HGB CONC 32.2 g/dl (33.0-37.0); MEAN PLATELET VOLUME 9.2 fl (9.6-12.3); PLATELET COUNT AUTOMATED 397 10*3/uL (130-400); RED BLOOD COUNT 3.49 10*6/uL (4.10-5.10); RED CELL DISTRI WIDTH 16.9 % (0-14.5); WHITE BLOOD COUNT 14.8 10*3/uL (4.8-10.8)
[2018-04-01 06:01] LABS: ALKALINE PHOSPHATASE 448 U/L (45-117); BUN 18 mg/dl (7-24); CHLORIDE 97 mmol/L (98-107); CREATININE 1.08 mg/dL (0.55-1.02); SGOT/AST 34 IU/L (3-35); SGPT/ALT 36 U/L (12-78); SODIUM 133 mmol/L (136-145)
[2018-04-01 07:16] LABS: PLATELET SUFFICIENCY NORMAL (NORMAL); POLYCHROMASIA SLIGHT; TOTAL CELLS COUNTED 100 #CELLS
[2018-04-01 08:00] VITALS: BP 135/86
[2018-04-01 12:00] VITALS: BP 104/57
[2018-04-01 16:00] VITALS: BP 113/63
[2018-04-01 20:00] VITALS: BP 100/60
[2018-04-02] VITALS: BP 108/82
[2018-04-02 06:00] LABS: HEMATOCRIT 30.8 % (37.0-47.0); HEMOGLOBIN 9.8 g/dl (12.0-16.0); MEAN CELL VOLUME 89.3 fl (81.0-99.0); MEAN CORPUSCULAR HGB 28.4 pg (27.0-31.0); MEAN CORPUSCULAR HGB CONC 31.8 g/dl (33.0-37.0); MEAN PLATELET VOLUME 9.5 fl (9.6-12.3); PLATELET COUNT AUTOMATED 400 10*3/uL (130-400); RED BLOOD COUNT 3.45 10*6/uL (4.10-5.10); WHITE BLOOD COUNT 18.4 10*3/uL (4.8-10.8)
[2018-04-02 06:03] LABS: CREATININE 1.33 mg/dL (0.55-1.02); POTASSIUM 4.4 mmol/L (3.5-5.1); TOTAL PROTEIN 5.5 gm/dL (6.4-8.2)
[2018-04-02 06:27] LABS: BURR CELLS FEW; POLYCHROMASIA SLIGHT; TOTAL CELLS COUNTED 100 #CELLS
[2018-04-02 06:28] LABS: OVALOCYTES FEW; PLATELET SUFFICIENCY NORMAL (NORMAL)
[2018-04-02 08:00] VITALS: BP 135/54
[2018-04-02 12:00] VITALS: BP 114/71
[2018-04-02 16:00] VITALS: BP 131/62
[2018-04-02 20:00] VITALS: BP 108/70
[2018-04-03] VITALS (9 sets, daily range): BP systolic 93–128; BP diastolic 47–75
[2018-04-03 06:42] LABS: BASO % 0.1 % (0.0-1.0); EOS % 0.1 % (1.0-4.0); HEMATOCRIT 29.3 % (37.0-47.0); HEMOGLOBIN 9.3 g/dl (12.0-16.0); LYMPH % 5.9 % (27.0-41.0); MEAN CELL VOLUME 87.2 fl (81.0-99.0); MEAN CORPUSCULAR HGB 27.7 pg (27.0-31.0); MEAN CORPUSCULAR HGB CONC 31.7 g/dl (33.0-37.0); MEAN PLATELET VOLUME 9.4 fl (9.6-12.3); MONO # 0.8 10*3/uL (0.1-1.0); MONO % 4.3 % (3.0-9.0); NEUT # 15.5 10*3/uL (2.3-7.9); NEUT % 88.7 % (47.0-73.0); PLATELET COUNT AUTOMATED 358 10*3/uL (130-400); RED BLOOD COUNT 3.36 10*6/uL (4.10-5.10); RED CELL DISTRI WIDTH 16.9 % (0-14.5); WHITE BLOOD COUNT 17.5 10*3/uL (4.8-10.8)
[2018-04-03 07:01] LABS: ALBUMIN 1.8 gm/dl (3.1-4.5); POTASSIUM 4.2 mmol/L (3.5-5.1)
[2018-04-03 07:05] LABS: CREATININE 1.25 mg/dL (0.55-1.02); TOTAL PROTEIN 5.4 gm/dL (6.4-8.2)
[2018-04-04] VITALS: BP 107/66
[2018-04-04 06:35] LABS: BASO % 0.2 % (0.0-1.0); EOS # 0.2 10*3/uL (0.0-0.4); EOS % 1.5 % (1.0-4.0); HEMATOCRIT 30.9 % (37.0-47.0); HEMOGLOBIN 9.8 g/dl (12.0-16.0); LYMPH # 1.2 10*3/uL (1.3-4.4); LYMPH % 9.3 % (27.0-41.0); MEAN CELL VOLUME 88.8 fl (81.0-99.0); MEAN CORPUSCULAR HGB 28.2 pg (27.0-31.0); MEAN CORPUSCULAR HGB CONC 31.7 g/dl (33.0-37.0); MEAN PLATELET VOLUME 9.7 fl (9.6-12.3); MONO # 0.7 10*3/uL (0.1-1.0); MONO % 5.2 % (3.0-9.0); NEUT # 10.8 10*3/uL (2.3-7.9); NUCLEATED RED BLOOD CELL 0.2 % (0.0-0.0); PLATELET COUNT AUTOMATED 374 10*3/uL (130-400); RED BLOOD COUNT 3.48 10*6/uL (4.10-5.10); RED CELL DISTRI WIDTH 17.4 % (0-14.5)
[2018-04-04 06:45] LABS: ALBUMIN 1.9 gm/dl (3.1-4.5); CREATININE 1.16 mg/dL (0.55-1.02); TOTAL PROTEIN 5.3 gm/dL (6.4-8.2)
[2018-04-04 08:00] VITALS: BP 104/63
[2018-04-04] MEDS ORDERED: TYLENOL325 M2 PO (11:42)
[2018-04-04] MEDS ORDERED: MAGIC MOUTHWASH PO (11:42)
[2018-04-04] MEDS ORDERED: Bactroban Oint22 GM T (11:42)
[2018-04-04] MEDS ORDERED: CLOTRIMAZOLE AF15 G3 T (11:42)
[2018-04-04] MEDS ORDERED: Ipratropium Brom3 ML NEB (11:42)
[2018-04-04] MEDS ORDERED: Lantus SC (11:42)
[2018-04-04] MEDS ORDERED: Humalog SQ (11:42)
[2018-04-04] MEDS ORDERED: HYDROCODONE-AC1 EAC1 PO (11:42)
[2018-04-04] MEDS ORDERED: METOPROLOL SUCC25 M2 PO (11:42)
[2018-04-04] MEDS ORDERED: XARE20MG PO (11:42)
[2018-04-04 12:00] VITALS: BP 100/57
== END 2018-04-04 15:23 | DRG 853 ==
LOC: ED 13:37 → EDHOLD 15:37 → 4E 15:37
PROVIDERS: Emergency Medicine; Family Medicine; Internal Medicine; Registered Nurse; Student in an Organized Health Care Education/Training Program; ADMIT Internal Medicine
PROC: 0D758ZZ Dilation of Esophagus, Via Natural or Artificial Opening Endoscopic (ICD-10-PCS; 2018-03-24)
PROC: 30233N1 Transfusion of Nonautologous Red Blood Cells into Peripheral Vein, Percutaneous Approach (ICD-10-PCS; 2018-03-27)
PROC: 0DH63UZ Insertion of Feeding Device into Stomach, Percutaneous Approach (ICD-10-PCS; principal; 2018-03-31)
PROC: 0KBN0ZZ Excision of Right Hip Muscle, Open Approach (ICD-10-PCS; 2018-04-03)
PROC: 0KBP0ZZ Excision of Left Hip Muscle, Open Approach (ICD-10-PCS; 2018-04-03)
DX: A41.9 Sepsis, unspecified organism (principal); J15.6 Pneumonia due to other Gram-negative bacteria; L89.313 Pressure ulcer of right buttock, stage 3; L89.323 Pressure ulcer of left buttock, stage 3; J96.01 Acute respiratory failure with hypoxia; N17.0 Acute kidney failure with tubular necrosis; E43 Unspecified severe protein-calorie malnutrition; E87.2 Acidosis; E87.1 Hypo-osmolality and hyponatremia; I42.9 Cardiomyopathy, unspecified; L97.429 Non-pressure chronic ulcer of left heel and midfoot with unspecified severity; L97.419 Non-pressure chronic ulcer of right heel and midfoot with unspecified severity; K22.2 Esophageal obstruction; E86.0 Dehydration; E11.22 Type 2 diabetes mellitus with diabetic chronic kidney disease; N18.9 Chronic kidney disease, unspecified; I12.9 Hypertensive chronic kidney disease with stage 1 through stage 4 chronic kidney disease, or unspecified chronic kidney disease; D64.9 Anemia, unspecified; D47.3 Essential (hemorrhagic) thrombocythemia; E11.65 Type 2 diabetes mellitus with hyperglycemia; L97.529 Non-pressure chronic ulcer of other part of left foot with unspecified severity; L97.519 Non-pressure chronic ulcer of other part of right foot with unspecified severity; I25.10 Atherosclerotic heart disease of native coronary artery without angina pectoris; K44.9 Diaphragmatic hernia without obstruction or gangrene; N20.0 Calculus of kidney; R62.7 Adult failure to thrive; R74.8 Abnormal levels of other serum enzymes; L89.150 Pressure ulcer of sacral region, unstageable; L30.9 Dermatitis, unspecified; E87.8 Other disorders of electrolyte and fluid balance, not elsewhere classified; I48.2 Chronic atrial fibrillation; E11.621 Type 2 diabetes mellitus with foot ulcer; Z96.659 Presence of unspecified artificial knee joint; Z79.4 Long term (current) use of insulin; Z95.1 Presence of aortocoronary bypass graft; Z90.49 Acquired absence of other specified parts of digestive tract; Z93.3 Colostomy status; Z82.49 Family history of ischemic heart disease and other diseases of the circulatory system; Z83.3 Family history of diabetes mellitus; Z79.899 Other long term (current) drug therapy; Z86.718 Personal history of other venous thrombosis and embolism

== ENCOUNTER 2018-04-29 16:14 | Inpatient (IN) | payer MEDICARE, OTHER ==
[~2018-04-29] VITALS: Ht 170.2 cm; Wt 68.1 kg
--- NOTE | ~2018-04-29 | EKG ---
[place], [place] ELECTROCARDIOGRAM REPORT NAME: FLAVIO MALLOY UNIT #: [id number] ROOM: [facility] DOCTOR: BRANDI DRAFT REPORT BIRTHDATE: [birth year] [facility] Test Date: 2018-05-10 Test Time: 06:43:28 Pat Name: FLAVIO MALLOY Department: Room: [place] [address] Gender: F Tool Lathe Operator: : 1945 Requested By: RICHY INMAN Order Number: [id number] Reading MD: Measurements Intervals [place] Rate: 66 P: -30 VA: 150 QRS: -21 QRSD: 81 T: 70 QT: 509 QTc: 534 Interpretive Statements Sinus rhythm Probable left atrial enlargement Probable left ventricular hypertrophy Inferior infarct, old Anterior Q waves, possibly due to LVH Prolonged QT interval Compared to ECG 03/24/2018 00:52:39 Left ventricular hypertrophy now present Q waves now present Atrial fibrillation no longer present Myocardial infarct finding still present CM:EKGRPT:ELECTROCARDIOGRAM REPORT [id number] 0345 RICHY PATE DRAFT REPORT
--- NOTE | ~2018-04-29 | O ---
[place], [place] OPERATIVE NOTE NAME: FLAVIO MALLOY UNIT #: [id number] ROOM: 422 DOCTOR: LUISITO LAN MD BIRTHDATE: [birth year] DOS: 05/01/2018 HISTORY OF PRESENT ILLNESS: A 32-year-old patient who presented with chief complaint of nausea, vomiting, history of ulcerative colitis, history of PEG tube, history of total colectomy. She has been told that if any other surgeries except the ones already outlined in the consultation. PROCEDURE: Today's procedure part of investigation is panendoscopy plus biopsy and photographic series. PREMEDICATION: Propofol. SCOPE: Olympus forward-viewing gastroscope Q10 video. REPORT: After putting the patient in the left lateral position and after application of lubricant to the scope, the scope was introduced. Thereafter, under direct visualization, advanced through the length of esophagus without difficulty. Diffuse esophageal ulceration secondary to reflux was identified. Gastric pouch was entered. Evidence of previous gastric surgery in this patient is known also PEG tube in place. It is difficult to say what the exact surgery has been done; however double barrel in stomach was noticed along the lesser curvature approachable 1 along the greater curvature to be approached. Duodenal bulb, second and third part within normal limits, old PEG tube in place. Antral biopsy for gastritis was obtained. The patient extubated, tolerated the procedure well. IMPRESSION: Diffuse esophageal ulcers, gastritis, PEG tube in place from past. Evidence of previous gastric surgery, details not known. The patient is going to be questioned again retrospectively. PLAN AND DISCUSSION: Protonix 40 mg IV b.i.d., Carafate slurry 2 hours before meals and at bedtime, Reglan 5 mg p.o. hour a.c. dinner and hopefully she can tolerate prokinetics antireflux with elevation of the head of the bed 6 inch all time. Workup in progress. [place], [place] OPERATIVE NOTE NAME: FLAVIO MALLOY UNIT #: [id number] ROOM: 422 DOCTOR: LUISITO LAN MD BIRTHDATE: [birth year] LUISITO LAN MD CM:OPRECORD:OPERATIVE NOTE 1429 1450 LUISITO LAN MD 05/17/18 0734 interface
--- NOTE | ~2018-04-29 | CON ---
[place], [place] REPORT OF CONSULTATION NAME: FLAVIO MALLOY UNIT #: [id number] ROOM: 422 DOCTOR: EDYTA BUNDYRAGHUAMILCAR BIRTHDATE: [birth year] DOS: 05/01/2018 GASTROENDOSCOPIC CONSULTATION REPORT HISTORY OF PRESENT ILLNESS: The patient has presented with abdominal pain, anorexia, unable to eat. She gives me history of ulcerative colitis. She has a PEG tube and colostomy tube in place. On 04/28/2018 data; white blood cell of 12, H and H of 9 and 31, platelet of 500. Comprehensive metabolic panel; BUN and creatinine 56 and 1.6. Electrolytes balance, liver function tests normal. INR 1.0. CBC differential the same way and no acute change. Lactic acid, however 3.2. CT scan of the abdomen with contrast has been done. No acute process was identified. There is surrounding gas bubbles in the soft tissue around the tip of her cultures, possibly related to decubitus ulcerations. Urine culture is negative. CBC differential stays stable. PAST MEDICAL HISTORY: Associated with diabetes mellitus, hypertension, chronic obstructive pulmonary disease, hyperlipidemia, depression, coronary artery disease, decubitus ulcers, severe sepsis, and ulcerative colitis history. PAST SURGICAL HISTORY: Status post colectomy, colostomy, PEG tube, appendectomy, CABG, and total knee prosthesis. FAMILY HISTORY: Noncontributory. MEDICATIONS: List has been reviewed. ALLERGIES: No known medication. FAMILY HISTORY: Noncontributory. REVIEW OF SYSTEMS: HEENT: Denies double vision, blurred vision. RESPIRATORY: Denies shortness of breath. CARDIOVASCULAR: Denies acute chest pain. DIGESTIVE SYSTEM: Nausea, anorexia. PHYSICAL EXAMINATION: VITAL SIGNS: Stable. HEENT: Benign. NECK: Supple, no thyromegaly. CHEST: Symmetric anatomy, equal expansion. No wheeze, no rhonchi. HEART: Normal sinus rhythm, no rub. LUNGS: Decreased air entry bilaterally. ABDOMEN: Soft. No hepato-organomegaly. Ostomy was functional. There is no blood in the colostomy bag. PEG tube is functional and tight in position. EXTREMITIES: No cyanosis. No pedal edema. NEUROLOGIC: Alert, oriented to time, place, person. IMPRESSION: Anorexia, ulcerative colitis, nausea, coronary artery disease, systemic hypertension and past surgical history as identified above. [place], [place] REPORT OF CONSULTATION NAME: FLAVIO MALLOY UNIT #: [id number] ROOM: 422 DOCTOR: EDYTA BUNDY,LUISITO BIRTHDATE: [birth year] PLAN AND DISCUSSION: We are going to endoscopically assess. We are going to address antiemetics and PPI management and clinical reassessment. The patient has been also on warfarin, which is on hold at this time. The patient has been on iron supplementation, cholestyramine, and multiple others as identified above. Thank you very much indeed. LUISITO LAN MD CM:CONSTR:REPORT OF CONSULTATION 1411 05/02/18 0254 interface
[2018-04-29 16:14] VITALS: BP 132/76
[~2018-04-29 16:14] MED LIST changes: +Bactroban Oint22 GM T; +CARAFATE1 G1 PO; +CLOTRIMAZOLE AF15 G3 T; +CREON DR 24,001 EACH PO; +FERROUS GLUCON324 M1 PO; +FLUOXETINE HCL60 MG PO; +HYDROCODONE-AC1 EAC1 PO; +Humalog SQ; +Ipratropium Brom3 ML NEB; +LOPRESSOR25 MG PO; +Lantus SC; +MAGIC MOUTHWASH PO; +METOCLOPRAMIDE10 MG PO; +METOPROLOL SUCC25 M2 PO; +PROTONIX TR40 M1 PO; +SODIUM BICARBO650 MG PO; +TYLENOL325 M2 PO; +XARE20MG PO; +ZOCOR20 MG PO
[2018-04-29 17:02] LABS: BILIRUBIN NEGATIVE (NEGATIVE); BLOOD 3+ (NEGATIVE); CLARITY CLOUDY (CLEAR); COLOR YELLOW (YELLOW); GLUCOSE NEGATIVE (NEGATIVE); KETONE TRACE (NEGATIVE); LEUKO ESTERASE 2+ (NEGATIVE); NITRITE NEGATIVE (NEGATIVE); UROBILINOGEN 0.2 E.U./dl (0.2-1.0)
[2018-04-29 17:04] LABS: BASO % 0.2 % (0.0-1.0); EOS % 0.1 % (1.0-4.0); HEMATOCRIT 33.3 % (37.0-47.0); LYMPH # 1.6 10*3/uL (1.3-4.4); LYMPH % 9.1 % (27.0-41.0); MEAN CELL VOLUME 83.9 fl (81.0-99.0); MEAN CORPUSCULAR HGB 27.7 pg (27.0-31.0); MEAN PLATELET VOLUME 9.5 fl (9.6-12.3); MONO # 0.7 10*3/uL (0.1-1.0); MONO % 3.8 % (3.0-9.0); NEUT # 15.5 10*3/uL (2.3-7.9); NEUT % 85.9 % (47.0-73.0); PLATELET COUNT AUTOMATED 613 10*3/uL (130-400); RED BLOOD COUNT 3.97 10*6/uL (4.10-5.10); RED CELL DISTRI WIDTH 16.2 % (0-14.5); WHITE BLOOD COUNT 18.1 10*3/uL (4.8-10.8)
[2018-04-29 17:12] LABS: ACT PARTIAL THROMBO TIME 24.4 SECONDS (20.8-31.5); INTERNATIONAL NORM RATIO 1.1 (2.0-3.5); RBC TNTC rbc/hpf (0-2); WBC 41-50 wbc/hpf (0-5)
[2018-04-29 17:13] LABS: BACTERIA TRACE
[2018-04-29 17:28] LABS: ALBUMIN 2.5 gm/dl (3.1-4.5); CREATININE 1.49 mg/dL (0.55-1.02); POTASSIUM 4.4 mmol/L (3.5-5.1); TOTAL PROTEIN 7.7 gm/dL (6.4-8.2); TROPONIN I 0.023 ng/ml (<0.045)
[2018-04-29 19:07] VITALS: BP 123/75
[2018-04-29 20:00] VITALS: BP 108/58
[2018-04-29 21:00] VITALS: BP 124/75
[2018-04-29] MEDS ORDERED: CHLORHEXIDINE473 M1 PO (22:14)
[2018-04-29] MEDS ORDERED: COUMADIN5 M2 PO (22:15)
[2018-04-29] MEDS ORDERED: MAGNESIUM OXID400 MG PO (22:18)
[2018-04-29] MEDS ORDERED: LOPERAMIDE1 MG/5 M1 PO (22:19)
[2018-04-29] MEDS ORDERED: NYST SUSP PO (22:20)
[2018-04-29] MEDS ORDERED: REMERON15 M2 PO (22:21)
[2018-04-30] VITALS: BP 120/59
[2018-04-30 06:39] LABS: BASO # 0.1 10*3/uL (0.0-0.1); BASO % 0.4 % (0.0-1.0); EOS # 0.2 10*3/uL (0.0-0.4); EOS % 1.2 % (1.0-4.0); HEMATOCRIT 32.2 % (37.0-47.0); HEMOGLOBIN 9.8 g/dl (12.0-16.0); LYMPH # 1.7 10*3/uL (1.3-4.4); LYMPH % 11.9 % (27.0-41.0); MEAN CORPUSCULAR HGB 26.8 pg (27.0-31.0); MEAN CORPUSCULAR HGB CONC 30.4 g/dl (33.0-37.0); MEAN PLATELET VOLUME 9.6 fl (9.6-12.3); MONO # 0.8 10*3/uL (0.1-1.0); MONO % 5.6 % (3.0-9.0); NEUT # 11.3 10*3/uL (2.3-7.9); NEUT % 80.1 % (47.0-73.0); PLATELET COUNT AUTOMATED 524 10*3/uL (130-400); RED BLOOD COUNT 3.66 10*6/uL (4.10-5.10); RED CELL DISTRI WIDTH 16.4 % (0-14.5); WHITE BLOOD COUNT 14.1 10*3/uL (4.8-10.8)
[2018-04-30 06:50] LABS: CREATININE 1.14 mg/dL (0.55-1.02); PHOSPHOROUS 4.4 mg/dL (2.5-4.9); POTASSIUM 4.4 mmol/L (3.5-5.1)
[2018-04-30 08:00] VITALS: BP 90/46
[2018-04-30] MEDS ORDERED: CRESTOR5 MG PO (09:58)
[2018-04-30] MEDS ORDERED: MARINOL2.5 M1 PO (09:59)
[2018-04-30] MEDS ORDERED: VENTOLIN 02.5 MG/3 M INH ×2 (10:03→10:07)
[2018-04-30] MEDS ORDERED: FERROUS SULFAT325 MG PO (10:09)
[2018-04-30] MEDS ORDERED: LISINOPRIL5 MG PO (10:11)
[2018-04-30] MEDS ORDERED: PROZAC20 MG PO (11:08)
[2018-04-30] MEDS ORDERED: QUESTRAN LIGHT4 GM PO (11:10)
[2018-04-30] MEDS ORDERED: NYAMYC15 GM T (11:12)
[2018-04-30 13:50] VITALS: BP 68/40
[2018-04-30 16:00] VITALS: BP 88/64
[2018-04-30 16:07] LABS: HEMATOCRIT 29.1 % (37.0-47.0)
[2018-04-30 20:00] VITALS: BP 113/50
[2018-05-01] VITALS (9 sets, daily range): BP systolic 98–155; BP diastolic 47–107
[2018-05-01 06:37] LABS: CHLORIDE 115 mmol/L (98-107); CREATININE 0.69 mg/dL (0.55-1.02); POTASSIUM 3.8 mmol/L (3.5-5.1); SODIUM 144 mmol/L (136-145)
[2018-05-01 06:39] LABS: BUN 36 mg/dl (7-24)
[2018-05-01 06:41] LABS: BASO # 0.1 10*3/uL (0.0-0.1); BASO % 0.6 % (0.0-1.0); EOS # 0.5 10*3/uL (0.0-0.4); HEMATOCRIT 31.1 % (37.0-47.0); HEMOGLOBIN 9.3 g/dl (12.0-16.0); LYMPH % 16.5 % (27.0-41.0); MEAN CELL VOLUME 89.9 fl (81.0-99.0); MEAN CORPUSCULAR HGB 26.9 pg (27.0-31.0); MEAN CORPUSCULAR HGB CONC 29.9 g/dl (33.0-37.0); MEAN PLATELET VOLUME 9.2 fl (9.6-12.3); MONO # 0.8 10*3/uL (0.1-1.0); MONO % 6.2 % (3.0-9.0); NEUT # 8.7 10*3/uL (2.3-7.9); NEUT % 72.1 % (47.0-73.0); PLATELET COUNT AUTOMATED 489 10*3/uL (130-400); RED BLOOD COUNT 3.46 10*6/uL (4.10-5.10); RED CELL DISTRI WIDTH 16.4 % (0-14.5); WHITE BLOOD COUNT 12.1 10*3/uL (4.8-10.8)
[2018-05-02] VITALS: BP 120/46
[2018-05-02 08:00] VITALS: BP 119/46
[2018-05-02 08:17] LABS: BASO # 0.1 10*3/uL (0.0-0.1); BASO % 0.6 % (0.0-1.0); EOS # 0.3 10*3/uL (0.0-0.4); EOS % 3.6 % (1.0-4.0); HEMATOCRIT 33.6 % (37.0-47.0); HEMOGLOBIN 10.3 g/dl (12.0-16.0); LYMPH # 2.3 10*3/uL (1.3-4.4); LYMPH % 24.3 % (27.0-41.0); MEAN CELL VOLUME 89.4 fl (81.0-99.0); MEAN CORPUSCULAR HGB 27.4 pg (27.0-31.0); MEAN CORPUSCULAR HGB CONC 30.7 g/dl (33.0-37.0); MONO # 0.6 10*3/uL (0.1-1.0); MONO % 5.9 % (3.0-9.0); NEUT # 6.1 10*3/uL (2.3-7.9); NEUT % 64.6 % (47.0-73.0); PLATELET COUNT AUTOMATED 507 10*3/uL (130-400); RED BLOOD COUNT 3.76 10*6/uL (4.10-5.10); RED CELL DISTRI WIDTH 16.4 % (0-14.5); WHITE BLOOD COUNT 9.4 10*3/uL (4.8-10.8)
[2018-05-02 08:28] LABS: CHLORIDE 111 mmol/L (98-107); CREATININE 0.61 mg/dL (0.55-1.02); POTASSIUM 3.8 mmol/L (3.5-5.1); SODIUM 141 mmol/L (136-145)
[2018-05-02 08:29] LABS: BUN 25 mg/dl (7-24)
[2018-05-02 12:00] VITALS: BP 102/50
[2018-05-02 16:00] VITALS: BP 128/91
[2018-05-02 20:00] VITALS: BP 115/60
[2018-05-03] VITALS: BP 141/59
[2018-05-03 07:19] LABS: BASO # 0.1 10*3/uL (0.0-0.1); BASO % 0.6 % (0.0-1.0); EOS # 0.5 10*3/uL (0.0-0.4); HEMATOCRIT 31.3 % (37.0-47.0); HEMOGLOBIN 9.5 g/dl (12.0-16.0); LYMPH # 2.2 10*3/uL (1.3-4.4); LYMPH % 22.9 % (27.0-41.0); MEAN CELL VOLUME 88.2 fl (81.0-99.0); MEAN CORPUSCULAR HGB 26.8 pg (27.0-31.0); MEAN CORPUSCULAR HGB CONC 30.4 g/dl (33.0-37.0); MEAN PLATELET VOLUME 9.8 fl (9.6-12.3); MONO # 0.8 10*3/uL (0.1-1.0); MONO % 7.9 % (3.0-9.0); NEUT % 62.9 % (47.0-73.0); PLATELET COUNT AUTOMATED 425 10*3/uL (130-400); RED BLOOD COUNT 3.55 10*6/uL (4.10-5.10); RED CELL DISTRI WIDTH 16.2 % (0-14.5); WHITE BLOOD COUNT 9.6 10*3/uL (4.8-10.8)
[2018-05-03 07:33] LABS: BUN 19 mg/dl (7-24); CHLORIDE 110 mmol/L (98-107); CREATININE 0.51 mg/dL (0.55-1.02); POTASSIUM 3.7 mmol/L (3.5-5.1); SODIUM 139 mmol/L (136-145)
[2018-05-03 08:00] VITALS: BP 147/50
[2018-05-03 12:00] VITALS: BP 143/43
[2018-05-03 16:00] VITALS: BP 128/54
[2018-05-03 20:00] VITALS: BP 97/40
[2018-05-04] VITALS: BP 122/77
[2018-05-04 07:45] LABS: BASO % 0.4 % (0.0-1.0); EOS # 0.4 10*3/uL (0.0-0.4); EOS % 4.4 % (1.0-4.0); HEMATOCRIT 34.7 % (37.0-47.0); HEMOGLOBIN 10.9 g/dl (12.0-16.0); LYMPH # 2.2 10*3/uL (1.3-4.4); LYMPH % 24.5 % (27.0-41.0); MEAN CELL VOLUME 87.8 fl (81.0-99.0); MEAN CORPUSCULAR HGB 27.6 pg (27.0-31.0); MEAN CORPUSCULAR HGB CONC 31.4 g/dl (33.0-37.0); MEAN PLATELET VOLUME 9.1 fl (9.6-12.3); MONO # 0.6 10*3/uL (0.1-1.0); MONO % 6.7 % (3.0-9.0); NEUT # 5.7 10*3/uL (2.3-7.9); NEUT % 63.2 % (47.0-73.0); PLATELET COUNT AUTOMATED 511 10*3/uL (130-400); RED BLOOD COUNT 3.95 10*6/uL (4.10-5.10); RED CELL DISTRI WIDTH 16.2 % (0-14.5)
[2018-05-04 08:00] VITALS: BP 120/39
[2018-05-04 08:07] LABS: BUN 13 mg/dl (7-24); CHLORIDE 112 mmol/L (98-107); POTASSIUM 3.7 mmol/L (3.5-5.1); SODIUM 141 mmol/L (136-145)
[2018-05-04] MEDS ORDERED: Carafate1 GM/10 ML PEG (11:07)
[2018-05-04] MEDS ORDERED: PROTONIX40 MG PO (11:07)
== END 2018-05-04 14:35 | disposition other institution (70) | DRG 871 ==
LOC: ED 16:14 → EDHOLD 20:09 → 4E 20:09
PROVIDERS: Internal Medicine; Internal Medicine Gastroenterology; Nurse Practitioner Family; Student in an Organized Health Care Education/Training Program; ADMIT Emergency Medicine
PROC: 0DB78ZX Excision of Stomach, Pylorus, Via Natural or Artificial Opening Endoscopic, Diagnostic (ICD-10-PCS; principal; 2018-05-01)
DX: A41.9 Sepsis, unspecified organism (principal); L89.323 Pressure ulcer of left buttock, stage 3; L89.154 Pressure ulcer of sacral region, stage 4; L89.324 Pressure ulcer of left buttock, stage 4; L89.313 Pressure ulcer of right buttock, stage 3; E43 Unspecified severe protein-calorie malnutrition; N17.0 Acute kidney failure with tubular necrosis; K22.11 Ulcer of esophagus with bleeding; K29.71 Gastritis, unspecified, with bleeding; T83.511A Infection and inflammatory reaction due to indwelling urethral catheter, initial encounter; E87.2 Acidosis; E87.1 Hypo-osmolality and hyponatremia; I50.22 Chronic systolic (congestive) heart failure; K51.919 Ulcerative colitis, unspecified with unspecified complications; N39.0 Urinary tract infection, site not specified; Z68.44 Body mass index [BMI] 60.0-69.9, adult; I13.0 Hypertensive heart and chronic kidney disease with heart failure and stage 1 through stage 4 chronic kidney disease, or unspecified chronic kidney disease; E86.0 Dehydration; R65.20 Severe sepsis without septic shock; N18.3 Chronic kidney disease, stage 3 (moderate); J44.9 Chronic obstructive pulmonary disease, unspecified; E78.5 Hyperlipidemia, unspecified; I25.10 Atherosclerotic heart disease of native coronary artery without angina pectoris; E83.41 Hypermagnesemia; I48.2 Chronic atrial fibrillation; F32.9 Major depressive disorder, single episode, unspecified; Z96.659 Presence of unspecified artificial knee joint; Y84.6 Urinary catheterization as the cause of abnormal reaction of the patient, or of later complication, without mention of misadventure at the time of the procedure; L89.521 Pressure ulcer of left ankle, stage 1; L89.312 Pressure ulcer of right buttock, stage 2; Z16.12 Extended spectrum beta lactamase (ESBL) resistance; E11.22 Type 2 diabetes mellitus with diabetic chronic kidney disease; K44.9 Diaphragmatic hernia without obstruction or gangrene; Z66 Do not resuscitate; Z51.5 Encounter for palliative care; E87.8 Other disorders of electrolyte and fluid balance, not elsewhere classified; L30.9 Dermatitis, unspecified; E11.65 Type 2 diabetes mellitus with hyperglycemia; Z93.3 Colostomy status; Z79.01 Long term (current) use of anticoagulants; Z90.49 Acquired absence of other specified parts of digestive tract; Z93.1 Gastrostomy status; Z95.1 Presence of aortocoronary bypass graft; Z79.899 Other long term (current) drug therapy; Z87.01 Personal history of pneumonia (recurrent); Z90.89 Acquired absence of other organs; Z82.49 Family history of ischemic heart disease and other diseases of the circulatory system; Z83.3 Family history of diabetes mellitus; Y92.89 Other specified places as the place of occurrence of the external cause; Z79.4 Long term (current) use of insulin

== ENCOUNTER 2018-05-09 23:54 | Inpatient (IN) | payer MEDICARE ==
[~2018-05-09] VITALS: Ht 162.6 cm; Wt 68.5 kg
--- NOTE | ~2018-05-09 | EKG ---
[place], [place] ELECTROCARDIOGRAM REPORT NAME: FLAVIO MALLOY UNIT #: [id number] ROOM: 516 DOCTOR: BRANDI DRAFT REPORT BIRTHDATE: [birth year] [facility] Test Date: 2018-05-10 Test Time: 03:08:32 Pat Name: FLAVIO MALLOY Department: Room: 516 Gender: F Tax Auditor: Laurie Moore : 1945 Requested By: RICHY INMAN Order Number: [id number] Reading MD: Lali Beckford Measurements Intervals [place] Rate: 73 P: 39 HI: 143 QRS: -22 QRSD: 90 T: 81 QT: 433 QTc: 478 Interpretive Statements Sinus rhythm Borderline left axis deviation Probable anteroseptal infarct, recent Baseline wander in lead(s) V2,V3,V5 Compared to ECG 03/24/2018 00:52:39 Atrial fibrillation no longer present Prolonged QT interval no longer present Myocardial infarct finding still present Electronically Signed On 05-12-2018 12:42:20 PST by Lali Beckford CM:EKGRPT:ELECTROCARDIOGRAM REPORT [id number] 1242 RICHY PATE DRAFT REPORT RICHY INMAN DO
--- NOTE | ~2018-05-09 | EKG ---
[place], [place] ELECTROCARDIOGRAM REPORT NAME: FLAVIO MALLOY UNIT #: [id number] ROOM: 516 DOCTOR: BRANDI DRAFT REPORT BIRTHDATE: [address] [facility] Test Date: 2018-05-10 Test Time: 00:09:42 Pat Name: FLAVIO MALLOY Department: Room: 516 Gender: F Coating Machine Feeder: Brian Thompson : 1945 Requested By: RICHY INMAN Order Number: [id number] Reading MD: Lali Beckford Measurements Intervals [place] Rate: 81 P: 36 NM: 141 QRS: -31 QRSD: 92 T: 78 QT: 441 QTc: 512 Interpretive Statements Sinus rhythm Anterior infarct, old Prolonged QT interval Compared to ECG 03/24/2018 00:52:39 Atrial fibrillation no longer present Myocardial infarct finding still present Electronically Signed On 05-12-2018 12:40:39 PST by Lali Beckford CM:EKGRPT:ELECTROCARDIOGRAM REPORT [id number] 1240 RICHY PATE DRAFT REPORT RICHY INMAN DO
--- NOTE | ~2018-05-09 | PR ---
[place], [place] PROGRESS NOTE NAME: FLAVIO MALLOY UNIT #: [id number] ROOM: 516 DOCTOR: DANNY BUNDY,ALEXSANDRA BIRTHDATE: [birth year] DOS: 05/12/2018 ADDENDUM CARDIOLOGY FOLLOWUP VISIT NOTE REASON FOR VISIT: Anticoagulation and recommendation for atrial fibrillation. This is an addendum to the note dictated by Dr. Esquivel. The patient is feeling better. Her hemoglobin dropped to 7.9. She denies any chest pains. OBJECTIVE: HEART: Normal except irregular heart rhythm and a grade 1/6 murmur. DIAGNOSES: 1. Chronic persistent atrial fibrillation. 2. Recurrent gastrointestinal bleeds and anemia. 3. Coronary artery disease, status post bypass surgery. RECOMMENDATIONS: 1. Again, the patient is agreeable to discontinue her Coumadin due to her high bleeding risk compared to her stroke risk without anticoagulation. 2. No family at bedside. 3. Recommend aspirin 81 mg once she can tolerate. 4. Cardiology sign off. I personally examined the patient. Her medications and allergies reviewed. Labs reviewed and I did independent examination and assessment of the patient today. ALEXSANDRA DELGADO MD CM:AUSTYN 1832 1226 ALEXSANDRA DELGADO MD 05/13/18 1754 interface
--- NOTE | ~2018-05-09 | CON ---
[place], [place] REPORT OF CONSULTATION NAME: FLAVIO MALLOY UNIT #: [id number] ROOM: 516 DOCTOR: EDYTA BUNDYLUISITO BIRTHDATE: [birth year] DOS: 05/10/2018 HISTORY OF PRESENT ILLNESS: The patient has presented with GI bleed and found to have INR greater than 11.7 with PT of 130 seconds and PTT of 52 sec with H and H of 11 and 35, platelet count of 450,000. The INR can be corrected post fresh frozen plasma, 1 unit 2 hours after infusion, improvement of INR to 3.6 and INR of 39 was noticed. One more unit expected to be infused. Her H and H relatively stable without any significant drop of any concern. No evidence of need of transfusion, otherwise. Comprehensive metabolic panel also was addressed. Chemistry normal, liver function test normal. Troponin slightly elevated, noticed. Hemoglobin A1c within normal limits. Labs reviewed, records reviewed. A urine culture greater than 100,000 bacteria noticed. PAST MEDICAL HISTORY: Associated with atrial fibrillation, chronic renal insufficiency, gastroesophageal reflux, hypertension, hypertriglyceridemia and ulcer of the buttocks. PAST SURGICAL HISTORY: Appendectomy, cholecystectomy, total colectomy, colostomy, CABG, PEG, total knee. SOCIAL HISTORY: Nonsmoker, nonalcohol consumer. FAMILY HISTORY: Noncontributory. ALLERGIES: No known medications. MEDICATIONS: List was reviewed including pantoprazole including Coumadin, iron supplementation as well. OTHER ADJUNCTIVE DIAGNOSES: As reviewed. REVIEW OF SYSTEMS: GENERAL: Denies double vision, blurred vision. RESPIRATORY: Denies shortness of breath. CARDIOVASCULAR: Denies chest pain. DIGESTIVE SYSTEM: as outlined above, hematemesis. PHYSICAL EXAMINATION: VITAL SIGNS: Stable. HEENT: Head normocephalic, nontraumatic. Mouth and buccal mucosa benign. NECK: Supple, no thyromegaly, no cervical lymphadenopathy. CHEST: Symmetric anatomy, decreased air entry in general. HEART: Normal sinus rhythm, no gallop, no murmur. ABDOMEN: Soft. No hepato-organomegaly ostomy functional bowel sounds present. EXTREMITIES: No cyanosis, no pedal edema. NEUROLOGIC: Alert and oriented. LABORATORY DATA: Labs reviewed, records reviewed. IMPRESSION: Gastrointestinal bleed secondary to toxicity Coumadin toxicity, [place], [place] REPORT OF CONSULTATION NAME: FLAVIO MALLOY UNIT #: [id number] ROOM: 516 DOCTOR: EDYTA BUNDY,LUISITO BIRTHDATE: [birth year] status post fresh frozen plasma x 1 unit and we are going to give another unit of fresh frozen plasma. There has not been any compromise in H and H. UTI is being addressed. Labs, records and radiologic studies have been reviewed from recent past and present. PLAN: We will be standing by. Otherwise, we are going to have repeat INR by 6:00 p.m. along with H and H, repeat again in the morning and clinical reassessment. I thank you very much indeed. Other adjunctive diagnoses as outlined in paragraph of past medical, surgical history. LUISITO LAN MD CM:CONSTR:REPORT OF CONSULTATION 1521 06/08/18 1530 interface
--- NOTE | ~2018-05-09 | CON ---
[place], [place] REPORT OF CONSULTATION NAME: FLAVIO MALLOY UNIT #: [id number] ROOM: 516 DOCTOR: ALEXSANDRA DELGADO MD BIRTHDATE: [birth year] DOS: 05/11/2018 CARDIOLOGY CONSULTATION REASON FOR CONSULTATION: Anticoagulation recommendation, persistent atrial fibrillation and recurrent GI bleed. HISTORY OF PRESENT ILLNESS: This is a 72-year-old patient with history of persistent atrial fibrillation, cardiomyopathy, hypertension, diabetes, anemia, recurrent GI bleed, who presented with nausea and vomiting as well as some black dark stools in her colostomy bag and also she was found to have elevated INR. Hence, she was admitted to the hospital. Cardiology consulted for recommendation regarding continuation of her long-term anticoagulation. She denies any chest pain. The patient appears to be tired, but no shortness of breath, no palpitations, no dizziness. No nausea, vomiting. No fever and chills. No tingling, numbness or weakness. No headaches. No PND, orthopnea. REVIEW OF SYSTEMS: Review of the 10 systems negative except as mentioned above. PAST MEDICAL HISTORY: 1. Chronic persistent atrial fibrillation. 2. Hypertension. 3. Chronic kidney disease. 4. Colostomy. 5. Decubitus ulcer of the sacral area. 6. Diabetes type 2. 7. History of peptic ulcer disease with esophageal bleeding. 8. Acid reflux. 9. Dyslipidemia. 10. Chronic anemia. PAST SURGICAL HISTORY: History of bypass, history of colectomy, history of cholecystectomy, history of PEG tube, knee replacement. SOCIAL HISTORY: The patient does not drink or smoke. Does not use illicit drugs. FAMILY HISTORY: Nil contributory. Father in his 40s from a surgical complication. Mother , cause unknown. ALLERGIES: No known drug allergies. HOME MEDICATIONS: Reviewed. IMAGING STUDIES, LABS AND EKG: Reviewed. PHYSICAL EXAMINATION: VITAL SIGNS: Blood pressure 100/55, pulse 56, respiratory rate was 18, weight 68.2 kilos. GENERAL: The patient is alert, comfortable, in no acute distress. [place], [place] REPORT OF CONSULTATION NAME: FLAVIO MALLOY UNIT #: [id number] ROOM: 516 DOCTOR: ALEXSANDRA DELGADO MD BIRTHDATE: [birth year] HEENT: Pupils are round and equal. Tongue was moist and pharynx clear. NECK: Supple, no distended neck veins, no carotid bruit. CHEST: Symmetrical, nontender. LUNGS: Clear to auscultation bilaterally. HEART: Irregularly irregular, grade 1/6 systolic murmur. ABDOMEN: Bowel sounds normal. The patient had a colostomy. EXTREMITIES: Showed no edema. Distal pulses palpable. SKIN: Warm and dry. No cyanosis, no clubbing. The patient had a sacral decubitus ulcer. NEUROLOGIC: Alert, oriented. No focal neurologic deficit. RECTAL: Deferred. GENITOURINARY: Deferred. IMPRESSION: 1. Persistent longstanding atrial fibrillation with mostly controlled ventricular rates. 2. Recurrent anemia and gastrointestinal bleed. 3. Chronic anemia. 4. Coagulopathy. 5. Borderline elevation in troponin due to chronic kidney disease. 6. Hypertension. 7. Diabetes type 2. 8. Left ventricular dysfunction with EF 40%, no acute heart failure. 9. Sacral decubitus ulcer. RECOMMENDATIONS: 1. Clinically, she appears to be stable. Continue to monitor heart rate and blood pressure. 2. The risks and benefits of the long-term anticoagulation discussed with her. The annual bleeding risk is 7.2 with CHADS2-VASc score of 5, however, her bleeding risk is 8.9% per year based on high HAS-BLED score of 4, bleeding risk of 9.4% based on ORBIT score of 6. She understood these numbers and we will decide by tomorrow whether to continue or discontinue long-term anticoagulation. Again, she understood that her risk of bleeding is more than the benefit of stroke prevention based on the above numbers. 3. No family at bedside. 4. If we discontinue her long-term anticoagulation, I would recommend aspirin 81 mg once daily. 5. Continue to hold her Coumadin and monitor her PT/INRs. 6. No further cardiac testing. [place], [place] REPORT OF CONSULTATION NAME: FLAVIO MALLOY UNIT #: [id number] ROOM: 516 DOCTOR: DANNY BUNDY,ALEXSANDRA BIRTHDATE: [birth year] ALEXSANDRA DELGADO MD CM:CONSTR:REPORT OF CONSULTATION 2320 05/12/18 [id number] interface
[~2018-05-09 23:54] MED LIST changes: +CHLORHEXIDINE473 M1 PO; +COUMADIN5 M2 PO; +CRESTOR5 MG PO; +Carafate1 GM/10 ML PEG; +FERROUS SULFAT325 MG PO; +LISINOPRIL5 MG PO; +LOPERAMIDE1 MG/5 M1 PO; +MAGNESIUM OXID400 MG PO; +MARINOL2.5 M1 PO; +NYAMYC15 GM T; +NYST SUSP PO; +PROTONIX40 MG PO; +PROZAC20 MG PO; +QUESTRAN LIGHT4 GM PO; +REMERON15 M2 PO; +VENTOLIN 02.5 MG/3 M INH
[2018-05-09 23:55] VITALS: BP 132/80
[2018-05-10] VITALS (10 sets, daily range): BP systolic 93–154; BP diastolic 42–80
[2018-05-10 00:46] LABS: BASO # 0.1 10*3/uL (0.0-0.1); BASO % 0.4 % (0.0-1.0); EOS # 0.1 10*3/uL (0.0-0.4); EOS % 0.9 % (1.0-4.0); HEMATOCRIT 35.3 % (37.0-47.0); LYMPH # 2.1 10*3/uL (1.3-4.4); LYMPH % 17.9 % (27.0-41.0); MEAN CELL VOLUME 86.9 fl (81.0-99.0); MEAN CORPUSCULAR HGB 27.1 pg (27.0-31.0); MEAN CORPUSCULAR HGB CONC 31.2 g/dl (33.0-37.0); MEAN PLATELET VOLUME 9.2 fl (9.6-12.3); MONO # 0.6 10*3/uL (0.1-1.0); MONO % 5.1 % (3.0-9.0); NEUT # 8.9 10*3/uL (2.3-7.9); NEUT % 75.3 % (47.0-73.0); PLATELET COUNT AUTOMATED 480 10*3/uL (130-400); RED BLOOD COUNT 4.06 10*6/uL (4.10-5.10); RED CELL DISTRI WIDTH 17.3 % (0-14.5); WHITE BLOOD COUNT 11.9 10*3/uL (4.8-10.8)
[2018-05-10 01:07] LABS: ALBUMIN 2.6 gm/dl (3.1-4.5); ALKALINE PHOSPHATASE 114 U/L (45-117); BUN 26 mg/dl (7-24); CHLORIDE 104 mmol/L (98-107); CREATININE 0.99 mg/dL (0.55-1.02); SGOT/AST 27 IU/L (3-35); SGPT/ALT 13 U/L (12-78); SODIUM 135 mmol/L (136-145); TOTAL PROTEIN 6.9 gm/dL (6.4-8.2)
[2018-05-10 01:12] LABS: ACT PARTIAL THROMBO TIME 52.4 SECONDS (20.8-31.5)
[2018-05-10 01:18] LABS: INTERNATIONAL NORM RATIO > 11.7 (2.0-3.5)
[2018-05-10 01:19] LABS: TROPONIN I 0.053 ng/ml (<0.045)
--- NOTE | 2018-05-10 02:33 | NUR ---
PATIENT STATED SHE DOESNT WANT ANY WOUND PHOTOS TAKEN.
--- NOTE | 2018-05-10 02:40 | NUR ---
A 72, admitted to [facility]U, under the services of HERMINIA Vaz DO with a diagnosis of GI BLEED, HCAP, AND WARFARIN INDUCED COAGULOPATHY. Chief complaint is NAUSE/VOMITING AND COFFEE GROUND EMESIS PER INTERMEDIATE. Patient arrived via stretcher from ER. Monitor applied. Initial assessment completed. Vital signs taken and recorded. HERMINIA VAZ DO notified of admission to the unit. Orders received. See assessment for past medical history, medications and allergies. Patient and/or family oriented to unit. [facility] visitation policy reviewed. Clothing/patient valuable form completed. JUDITH ROBERTS
--- NOTE | 2018-05-10 03:21 | NUR ---
MALLOY,FLAVIO E [id number] Please refer to the physician's history and physical for past medical history, comorbid conditions, and allergies. Diagnosis: GI BLEED HCAP WARFARIN INDUCED COAGULOPATHY Talha Score: , WOUND DESCRIPTIONS: Location of the wound: left buttocks Type of wound: Stage 3 Thickness: Full Size: 2.1CM X 1.0CM X 0.1CM Tunneling: none Undermining: none Sinus Tract: none Presence of Exudate: Serosanguineous Amount: Light Color: Red, yellow Odor: None Periwound Skin Appearance: Normal Wound edges: approximated Pain (associated with wound): none at time of assessment How does patient state this happened? pt stated had areas for atleast a month or so now Location of the wound: right medial buttocks Type of wound: stage 2 Thickness: Partial Size: 1.9cm x 0.9cm x 0.1cm Tunneling: none Undermining: none Sinus Tract: none Presence of Exudate: Serosanguineous Amount: Light Color: Red Odor: None Periwound Skin Appearance: Normal Wound edges: approximated Pain (associated with wound): none at time of assessment How does patient state this happened? pt stated had areas for atleast a month or so now Location of the wound: right lateral buttocks Type of wound: stage 3 Thickness: Full Size: 2.4cm x 3.6cm x 0.1cm Tunneling: none Undermining: none Sinus Tract: none Presence of Exudate: Serosanguineous Amount: Light Color: Red, yellow Odor: None Periwound Skin Appearance: Normal Wound edges: approximated Pain (associated with wound): none at time of assessment How does patient state this happened? pt stated had areas for atleast a month or so now Location of the wound: sacrum Type of wound: stage 4 Thickness: Full Size: 5.5cm x 6.0cm x 2.9cm Tunneling: none Underminin o'clock - 7 o'clock 2.5cm Sinus Tract: none Presence of Exudate: Serosanguineous Amount: Light Color: Red Odor: None Periwound Skin Appearance: Normal Wound edges: epibole Pain (associated with wound): none at time of assessment How does patient state this happened? pt stated had areas for atleast a month or so now Location of the wound: right heel Type of wound: stage 1 Size: 1.5cm x 0.3cm x 0.1cm Tunneling: none Undermining: none Sinus Tract: none Presence of Exudate: none Amount: None Color: Red Odor: None Periwound Skin Appearance: Normal Wound edges: approximated Pain (associated with wound): none at time of assessment How does patient state this happened? pt stated she had these areas for a while Location of the wound: left outer leg Thickness: Full Size: 2.6cm x 2.3cm x <0.1cm Tunneling: none Undermining: none Sinus Tract: none Presence of Exudate: none Amount: None Color: Purple, dark red, brown Odor: None Periwound Skin Appearance: Normal Wound edges: approximated Pain (associated with wound): none at time of assessment How does patient state this happened? pt stated had these areas for a while 2 intact scars noted to the right buttocks. 2 intact scars noted to left buttocks. Left heel is red and blanchable at time of assessment. Surface the patient is resting on: Isoflex When this nurse asked to take photographs patient stated she told them in the ER that it was okay to take photographs. SKIN PREVENTION RECOMMENDATION: 1. Pressure redistribution support surface as appropriate 2. Elevate heels 3. Remove boots/TEDS every shift and reapply 4. Head of bed 30 degrees as tolerated 5. Assess nutrition and hydration 6. Manage moisture 7. Avoid the use of containment devices while in bed 8. Use absorptive products on surfaces limit layers of linens on bed 9. Turn and reposition every 1-2 hours in bed and every 1 hour in chair as tolerated 10. Weight shifts every 15 minutes while up in chair 11. Offloading with pillows or device to keep heels elevated off bed 12. Monitor skin at least every shift 13. Inspect under medical devices twice a day WOUND TREATMENT RECOMMENDATIONS: Heel raiser pro boots while in bed. Wheelchair cushion when oob. Venous and arterial studies of BLE's Consult [facility] for possible debridement of right lateral buttocks, left buttocks and left outer leg. Stage 3 guidelines: Cleanse left buttocks and right lateral buttocks with nss and apply sureprep around the wound therahoney to wound bed and cover with optifoam gentle. Stage 2 guidelines: Cleanse right medial buttocks with nss and apply sureprep around the wound therahoney to wound bed and cover with optifoam gentle. Stage 1 guidelines: Apply sureprep to right heel allow to dry then cover with optifoam gentle. Full thickness guidelines: Cleanse left outer leg with nss and apply sureprep around the wound therahoney to wound bed and cover with optifoam gentle. Stage 4 guidelines: Cleanse sacrum with nss and apply sureprep around the wound therahoney to wound bed and light pack with maxorb then cover with optifoam sacral gentle.
[2018-05-10 03:35] LABS: BASO # 0.1 10*3/uL (0.0-0.1); BASO % 0.5 % (0.0-1.0)
[2018-05-10] MEDS ORDERED: ARGINAID POWDE1 EACH PO (03:39)
[2018-05-10] MEDS ORDERED: LANTUS SOL100 UNIT/1 SQ (03:46)
[2018-05-10] MEDS ORDERED: METOPROLOL SUCC25 M2 PO (03:50)
[2018-05-10] MEDS ORDERED: PRILOSEC20 M1 PO (03:51)
[2018-05-10 03:52] LABS: ALBUMIN 2.6 gm/dl (3.1-4.5); ALKALINE PHOSPHATASE 115 U/L (45-117); BUN 25 mg/dl (7-24); CHLORIDE 106 mmol/L (98-107); CHOLESTEROL 174 mg/dL (<200); CREATININE 1.02 mg/dL (0.55-1.02); HDL CHOLESTEROL 66 mg/dl (40-60); LDL CHOLESTEROL 75 mg/dL (9-159); POTASSIUM 4.7 mmol/L (3.5-5.1); SGOT/AST 20 IU/L (3-35); SGPT/ALT 11 U/L (12-78); SODIUM 139 mmol/L (136-145); TOTAL PROTEIN 6.9 gm/dL (6.4-8.2); TRIGLYCERIDES 167 mg/dl (<150); VLDL CHOLESTEROL 33 mg/dL (6-40)
[2018-05-10 03:54] LABS: BILIRUBIN NEGATIVE (NEGATIVE); BLOOD 3+ (NEGATIVE); CLARITY CLOUDY (CLEAR); COLOR YELLOW (YELLOW); GLUCOSE NEGATIVE (NEGATIVE); KETONE NEGATIVE (NEGATIVE); LEUKO ESTERASE 3+ (NEGATIVE); NITRITE NEGATIVE (NEGATIVE); PH 5.5 (5.0-9.0); UROBILINOGEN 0.2 E.U./dl (0.2-1.0)
[2018-05-10] MEDS ORDERED: TYLENOL325 M1 PO (03:55)
[2018-05-10] MEDS ORDERED: ZOFRAN4 MG PO (03:59)
[2018-05-10 04:26] LABS: BACTERIA 1+; RBC TNTC rbc/hpf (0-2); WBC TNTC wbc/hpf (0-5); YEAST 3+
--- NOTE | 2018-05-10 06:43 | NUR ---
CALLED DCOTOR CONSULT TO EDYTA WHO SAID TO WAIT GET ANOTHER PT/INR AT 9 AM THIS NEEDS TIME HE SAIDITSW NOT BEEN LONG ENOUGH SINCE FFP WAS GIVEN
[2018-05-10 07:07] LABS: HEMATOCRIT 29.8 % (37.0-47.0); HEMOGLOBIN 9.3 g/dl (12.0-16.0); RED BLOOD COUNT 3.46 10*6/uL (4.10-5.10); WHITE BLOOD COUNT 8.3 10*3/uL (4.8-10.8)
[2018-05-10 07:08] LABS: MEAN CELL VOLUME 86.1 fl (81.0-99.0); MEAN CORPUSCULAR HGB 26.9 pg (27.0-31.0); MEAN CORPUSCULAR HGB CONC 31.2 g/dl (33.0-37.0); PLATELET COUNT AUTOMATED 428 10*3/uL (130-400); RED CELL DISTRI WIDTH 17.2 % (0-14.5)
[2018-05-10 07:09] LABS: LYMPH % 24.5 % (27.0-41.0); MEAN PLATELET VOLUME 9.3 fl (9.6-12.3); MONO % 7.6 % (3.0-9.0); NEUT % 64.8 % (47.0-73.0)
[2018-05-10 07:10] LABS: EOS % 2.2 % (1.0-4.0); MONO # 0.6 10*3/uL (0.1-1.0); NEUT # 5.4 10*3/uL (2.3-7.9)
[2018-05-10 07:11] LABS: EOS # 0.2 10*3/uL (0.0-0.4)
[2018-05-10 08:01] LABS: VITAMIN D, 25-HYDROXY 26.8 ng/mL (30-100)
--- NOTE | 2018-05-10 08:23 | NUR ---
BARROW CATHETER REMOVED AND NEW 16FR BARROW PLACED.
[2018-05-10 09:10] LABS: INTERNATIONAL NORM RATIO 3.6 (2.0-3.5)
--- NOTE | 2018-05-10 09:25 | NUR ---
DR THOMASON NOTIFIED OF THE NEED FOR WOUND CARE ORDERS.
--- NOTE | 2018-05-10 10:21 | NUR ---
BECCA NOLAN ,WOUND CARE NURSE PRACTITIONER, IN TO SEE PT AND LOOKED AT WOUNDS.
--- NOTE | 2018-05-10 10:44 | NUR ---
Dr. Keller notified of wound care recommendations.
[2018-05-10 18:34] LABS: HEMATOCRIT 29.3 % (37.0-47.0); HEMOGLOBIN 9.3 g/dl (12.0-16.0)
[2018-05-10 18:43] LABS: INTERNATIONAL NORM RATIO 3.7 (2.0-3.5)
--- NOTE | 2018-05-10 22:00 | NUR ---
MEDICATED WITH RESTORIL PER PRN ORDER FOR C/O INSOMNIA.
[2018-05-11] VITALS: BP 109/50
[2018-05-11 04:00] VITALS: BP 100/55
--- NOTE | 2018-05-11 05:30 | NUR ---
DR Mary Ellen HILARIO NOTIFIED OF URNIE OUTPUT OF 50CC FOR 11-7 SHIFT.
[2018-05-11 05:55] LABS: CREATININE 1.7 mg/dL (0.55-1.02); PHOSPHOROUS 4.4 mg/dL (2.5-4.9); POTASSIUM 4.5 mmol/L (3.5-5.1)
[2018-05-11 06:01] LABS: BASO % 0.4 % (0.0-1.0); EOS # 0.4 10*3/uL (0.0-0.4); EOS % 5.7 % (1.0-4.0); HEMATOCRIT 26.8 % (37.0-47.0); HEMOGLOBIN 8.1 g/dl (12.0-16.0); LYMPH # 1.4 10*3/uL (1.3-4.4); LYMPH % 19.7 % (27.0-41.0); MEAN CELL VOLUME 88.7 fl (81.0-99.0); MEAN CORPUSCULAR HGB 26.8 pg (27.0-31.0); MEAN CORPUSCULAR HGB CONC 30.2 g/dl (33.0-37.0); MEAN PLATELET VOLUME 9.6 fl (9.6-12.3); MONO # 0.6 10*3/uL (0.1-1.0); MONO % 8.7 % (3.0-9.0); NEUT # 4.6 10*3/uL (2.3-7.9); NEUT % 65.2 % (47.0-73.0); PLATELET COUNT AUTOMATED 324 10*3/uL (130-400); RED BLOOD COUNT 3.02 10*6/uL (4.10-5.10); RED CELL DISTRI WIDTH 17.2 % (0-14.5); WHITE BLOOD COUNT 7.1 10*3/uL (4.8-10.8)
[2018-05-11 06:41] LABS: INTERNATIONAL NORM RATIO 3.8 (2.0-3.5)
--- NOTE | 2018-05-11 06:45 | NUR ---
DR LAN NOTIFIED OF LAB RESULTS ORDERED. NEW ORDERS TO HOLD COUMADIN AND NO COAGULATION. PT/INR AND H&H IN AM. PT MAY ALSO EAT AND 1800 ADA DIET ORDERED.
--- NOTE | 2018-05-11 07:55 | NUR ---
Patient comes in from [facility] where she is short term skilled. Patient is ok to return when medically stable for discharge.
[2018-05-11 08:00] VITALS: BP 109/54
--- NOTE | 2018-05-11 08:45 | NUR ---
Clinical updates faxed to [facility] for review/ patient is short term skilled there and can return when medically stable for discharge.
--- NOTE | 2018-05-11 09:00 | NUR ---
Plastic Sewer in to see patient. She ic currently at [facility] short term and would like to return there upon discharge. materials planner following.
[2018-05-11 11:59] LABS: BASO % 0.4 % (0.0-1.0); EOS # 0.5 10*3/uL (0.0-0.4); EOS % 5.5 % (1.0-4.0); HEMATOCRIT 29.2 % (37.0-47.0); HEMOGLOBIN 9.1 g/dl (12.0-16.0); LYMPH # 1.7 10*3/uL (1.3-4.4); LYMPH % 19.6 % (27.0-41.0); MEAN CELL VOLUME 87.4 fl (81.0-99.0); MEAN CORPUSCULAR HGB 27.2 pg (27.0-31.0); MEAN CORPUSCULAR HGB CONC 31.2 g/dl (33.0-37.0); MEAN PLATELET VOLUME 9.1 fl (9.6-12.3); MONO # 0.6 10*3/uL (0.1-1.0); MONO % 7.4 % (3.0-9.0); NEUT # 5.7 10*3/uL (2.3-7.9); NEUT % 66.6 % (47.0-73.0); PLATELET COUNT AUTOMATED 336 10*3/uL (130-400); RED BLOOD COUNT 3.34 10*6/uL (4.10-5.10); RED CELL DISTRI WIDTH 17.2 % (0-14.5); WHITE BLOOD COUNT 8.5 10*3/uL (4.8-10.8)
[2018-05-11 12:00] VITALS: BP 151/61
--- NOTE | 2018-05-11 14:15 | NUR ---
TX TO 5E VIA BED WITH ALL BELONGINGS.
--- NOTE | 2018-05-11 15:53 | NUR ---
MEDICATED WITH IV DEXTROSE AND ZOFRAN ORDERED PER PT REQUEST FOR C/O NAUSEA AND INABILITY TO EAT W/ A BSG OF 88.
[2018-05-11 16:00] VITALS: BP 116/51
--- NOTE | 2018-05-11 17:00 | NUR ---
DRESSING CHANGED TO PEG TUBE SITE WHICH IS ASYMPTOMATIC. COLOSTOMY EMPTIED FOR GREEN LIQUID STOOL. PT REPOSITIONED.
--- NOTE | 2018-05-11 17:22 | NUR ---
MEDICATION EFFECTIVE FOR NAUSEA.
[2018-05-11 20:00] VITALS: BP 108/42
--- NOTE | 2018-05-11 20:00 | NUR ---
COLOSTOMY BAG CHANGED D/T PREVIOUS BAG LEAKING.
--- NOTE | 2018-05-11 21:05 | NUR ---
PATIENT MEDICATED WITH RESTORIL PER PRN ORDER FOR INABILITY TO SLEEP. SEE EMAR. REINFORCED USE OF CALL LIGHT.
--- NOTE | 2018-05-11 21:45 | NUR ---
SPOKE WITH DR. ORTEGA ABOUT BLOOD SUGAR BEING 81. NO NEW ORDERS RECEIVED
--- NOTE | 2018-05-11 23:20 | NUR ---
PATIENT RESTING QUIETLY. MEDICATION GIVEN EARLIER EFFECTIVE.
--- NOTE | 2018-05-11 23:33 | NUR ---
24 HR chart check completed.
[2018-05-12] VITALS: BP 113/52
--- NOTE | 2018-05-12 03:35 | NUR ---
Recommend follow up for wound care in outpatient setting patient being discharge to another facility at this time.
[2018-05-12 06:25] LABS: BASO % 0.3 % (0.0-1.0); EOS # 0.4 10*3/uL (0.0-0.4); HEMATOCRIT 25.8 % (37.0-47.0); HEMOGLOBIN 7.9 g/dl (12.0-16.0); LYMPH # 1.6 10*3/uL (1.3-4.4); MEAN CELL VOLUME 88.1 fl (81.0-99.0); MEAN CORPUSCULAR HGB CONC 30.6 g/dl (33.0-37.0); MEAN PLATELET VOLUME 9.2 fl (9.6-12.3); MONO # 0.5 10*3/uL (0.1-1.0); MONO % 7.1 % (3.0-9.0); NEUT # 4.8 10*3/uL (2.3-7.9); NEUT % 65.3 % (47.0-73.0); PLATELET COUNT AUTOMATED 288 10*3/uL (130-400); RED BLOOD COUNT 2.93 10*6/uL (4.10-5.10); RED CELL DISTRI WIDTH 17.2 % (0-14.5); WHITE BLOOD COUNT 7.4 10*3/uL (4.8-10.8)
[2018-05-12 06:28] LABS: INTERNATIONAL NORM RATIO 2.2 (2.0-3.5)
[2018-05-12 06:43] LABS: CREATININE 2.6 mg/dL (0.55-1.02); POTASSIUM 4.8 mmol/L (3.5-5.1)
--- NOTE | 2018-05-12 07:47 | NUR ---
Patient comes from [facility] term [facility]. She is ok to return when medically stable for discharge.
[2018-05-12 08:00] VITALS: BP 115/44
--- NOTE | 2018-05-12 08:00 | NUR ---
Front Office Agent in to see patient. She is currently at [facility] short term and would like to return there upon discharge. planner following.
--- NOTE | 2018-05-12 08:30 | NUR ---
COLOSTOMY BAG LEAKING AT THIS TIME. PATIENT CLEANED AND NEW BAG PUT IN TO PLACE. STOMA IS RED TISSUE, HEALTHY AND INTACT. PATIENT VOICED NO COMPLAINTS.
--- NOTE | 2018-05-12 08:45 | NUR ---
TRANSPORT TO P/U TO TAKE PATIENT TO RENAL US.
--- NOTE | 2018-05-12 09:25 | NUR ---
OFFICE CALLED, STATED THEY WILL GIVE HIM THE MESSAGE OF CONSULT.
--- NOTE | 2018-05-12 11:10 | NUR ---
PHYSICAL THERAPY PAtient evaluated on 5, full evaluation to follow. Continue with PT as per plan of care with fall, bed alarm, max (A) x 2 prn and acute debility precautions. Will require return to SNF, as prior. PAtient is high complexity via chart review, tests and evaluation: [id number]. Thank you for this referral. Марина Valladares,PT
--- NOTE | 2018-05-12 11:38 | NUR ---
Nutritional Support Services Note: Pt is not eatin well, noted to have decubitus ulcers noted. Ht.5'4 Wt.151#. IBW 110-130. She is at appropriate wt for ht at this time. She requires 1661cal daily to maintain current wt. Increased need for calories and protein to promote healing. Albumin is low. Recommend twocal Hn to run from 8pm to 8am at 70cc per hour. TF will provide pt with 840cc/1680cal daily. She requires 2059cc of fluid daily. Encourage po intake of fluids. Monitor for further po intake. Jyoti Mark Rdn Ld
--- NOTE | 2018-05-12 11:40 | NUR ---
Occupational Therapy evaluation completed on 5 with full eval to follow. Precautions include fall risk; bed alarm, no chair alarm could be located when patient assisted to the recliner therefore tray table placed infront of patient, central line right neck, imp cognition, balance, safety, ADLs. Patient is high complexity level 36087 via chart review, testing and evaluation. Recommend return to SNF upon d/c. Thank you for this referral. Diana Rachel OTR/L
[2018-05-12 12:00] VITALS: BP 134/54
[2018-05-12 12:04] LABS: HEMATOCRIT 30.2 % (37.0-47.0); HEMOGLOBIN 9.5 g/dl (12.0-16.0)
[2018-05-12 13:12] LABS: ALBUMIN 2.3 gm/dl (3.1-4.5); CREATININE 2.71 mg/dL (0.55-1.02); PHOSPHOROUS 3.8 mg/dL (2.5-4.9); POTASSIUM 4.9 mmol/L (3.5-5.1)
--- NOTE | 2018-05-12 13:13 | NUR ---
PATIENT REQUESTED TO BE PLACED BACK INTO D/T BUTTOCK HURTING FROM SITTING IN CHAIR FOR AN HOUR. PATIENT LAYING IN BED, CALL LIGHT LEFT WITHIN REACH.
--- NOTE | 2018-05-12 14:00 | NUR ---
250CC OF FREE WATER GIVEN. PEG-TUBE ASSESSED BEFORE ADMINSTRATION, PROPER PLACEMENT. SITE ASYMPTOMATIC, T-SPONGE IN PLACE. PT VOICED NO COMPLAINTS
[2018-05-12] MEDS ORDERED: REPATHA SY140 MG/1 M SQ (14:35)
[2018-05-12 16:00] VITALS: BP 117/68
[2018-05-12 20:00] VITALS: BP 104/55
--- NOTE | 2018-05-12 21:24 | NUR ---
PATIENT MEDICATED WITH RESTORIL PER PRN ORDER AND PATIENT REQUEST TO HELP HER SLEEP. SEE EMAR. REINFORCED USE OF CALL LIGHT.
[2018-05-13] VITALS: BP 108/58
--- NOTE | 2018-05-13 | NUR ---
250 CC FREE WATER GIVEN. COLOSTOMY BAG CHANGED D/T LEAKING. PATIENT TOLERATED WELL. PEG FEEDING INFUSING PER ORDER. REINFORCED USE OF CALL LIGHT.
[2018-05-13 06:59] LABS: ALBUMIN 1.9 gm/dl (3.1-4.5); POTASSIUM 5.3 mmol/L (3.5-5.1)
[2018-05-13 07:02] LABS: CREATININE 3.21 mg/dL (0.55-1.02); PHOSPHOROUS 2.7 mg/dL (2.5-4.9)
[2018-05-13 08:00] VITALS: BP 108/58
--- NOTE | 2018-05-13 08:00 | NUR ---
TUBEFEED STOPPED AT THIS TIME. [id number] IN PROPER PLACEMENT, FLUSHED WITH 250CC FREE WATER. TUBE CLAMPED AT THIS TIME. COLOSTOMY DRAINED AT THIS [id number] OF FLUIDS. D5W 1/2 NS W/ 20 K STOPPED AND NS RUNNING AT 70CC/HR IN RIJ. PATIENT REPOSITIONED PER REQUEST, VOICED NO COMPLAINTS. CALL LIGHT LEFT WITHIN REACH.
--- NOTE | 2018-05-13 10:00 | NUR ---
NEW COLOSTOMY BAG CHANGED D/T LEAKAGE. STOMA ADHESIVE ADDED TO WAFER. SKIN IS IRRITATED AT THIS TIME D/T LEAKED SITE, AREA RED AND SHINEY. PATIENT VOICED NO COMPLAINTS AT THIS TIME.
--- NOTE | 2018-05-13 10:44 | NUR ---
PATIENT MEDICATED WITH ZOFRAN FROM C/O NAUSEA. WILL MONITOR
--- NOTE | 2018-05-13 11:00 | NUR ---
IN TO SEE PATIENT AT BEDSIDE. AWAITING WOUND ORDERS.
--- NOTE | 2018-05-13 11:44 | NUR ---
ZOFRAN EFFECTIVE FOR NAUSEA
[2018-05-13] MEDS ORDERED: ASPIRIN ADULT L81 M2 PO (11:51)
[2018-05-13] MEDS ORDERED: AUGMENTIN 500500 M1 PO (11:51)
[2018-05-13] MEDS ORDERED: DIFLUCAN50 MG PO (11:51)
[2018-05-13] MEDS ORDERED: PRILOSEC20 M1 PO (11:51)
[2018-05-13] MEDS ORDERED: MARINOL2.5 M1 PO (11:53)
[2018-05-13 12:00] VITALS: BP 102/58
--- NOTE | 2018-05-13 12:00 | NUR ---
WOUND CARE COMLPETED TO ALL WOUNDS, PATIENT TOLERATED WELL. DISCHARGE PHOTOS TAKEN AT THIS TIME.
--- NOTE | 2018-05-13 13:05 | NUR ---
CALLED RESIDENT TO SEE IF RIJ WAS BEING DISCONTINUED TO GO TO SNF OR IF PATIENT IS GOING WITH RIJ. STATES IT WILL BE DISCONTINUED PRIOR TO DISCHARGE.
--- NOTE | 2018-05-13 14:02 | NUR ---
THE [facility] CALLED AND INFORMED THAT PATIENT WILL BE DISCHARGED TODAY.
--- NOTE | 2018-05-13 14:51 | NUR ---
[id number] REPORT GIVEN TO CHELSEA. TORRES TO PICK-UP AT 1500
--- NOTE | 2018-05-13 14:55 | NUR ---
Discharge instructions reviewed with patient/family. Patient receptive and verbalizes understanding. Follow-up care arranged. Written instructions given to patient/family. RIJ AND IV CATHETER REMOVED,PRESSURE & DRESSING APPLIED. AYDE DENT
== END 2018-05-13 14:55 | disposition other institution (70) | DRG 813 ==
LOC: ED 23:54 → ICCU 05-10 01:27 → EDHOLD 05-10 01:27 → ICCU 05-10 01:30 → 5E 05-11 14:00
PROVIDERS: Internal Medicine; Internal Medicine Gastroenterology; Registered Nurse; Student in an Organized Health Care Education/Training Program; ADMIT Internal Medicine
DX: D68.32 Hemorrhagic disorder due to extrinsic circulating anticoagulants (principal); J18.9 Pneumonia, unspecified organism; L89.323 Pressure ulcer of left buttock, stage 3; L89.154 Pressure ulcer of sacral region, stage 4; L89.313 Pressure ulcer of right buttock, stage 3; E43 Unspecified severe protein-calorie malnutrition; K92.2 Gastrointestinal hemorrhage, unspecified; N39.0 Urinary tract infection, site not specified; E87.1 Hypo-osmolality and hyponatremia; K51.018 Ulcerative (chronic) pancolitis with other complication; L97.829 Non-pressure chronic ulcer of other part of left lower leg with unspecified severity; K51.90 Ulcerative colitis, unspecified, without complications; K52.9 Noninfective gastroenteritis and colitis, unspecified; T45.515A Adverse effect of anticoagulants, initial encounter; R31.9 Hematuria, unspecified; D47.3 Essential (hemorrhagic) thrombocythemia; L30.9 Dermatitis, unspecified; E11.649 Type 2 diabetes mellitus with hypoglycemia without coma; Z79.4 Long term (current) use of insulin; D64.9 Anemia, unspecified; Z92.89 Personal history of other medical treatment; Z93.1 Gastrostomy status; L89.312 Pressure ulcer of right buttock, stage 2; I48.91 Unspecified atrial fibrillation; N18.9 Chronic kidney disease, unspecified; Z93.3 Colostomy status; E11.22 Type 2 diabetes mellitus with diabetic chronic kidney disease; Z86.718 Personal history of other venous thrombosis and embolism; K21.9 Gastro-esophageal reflux disease without esophagitis; E78.5 Hyperlipidemia, unspecified; Z90.49 Acquired absence of other specified parts of digestive tract; Z95.1 Presence of aortocoronary bypass graft; Z96.659 Presence of unspecified artificial knee joint; Z82.49 Family history of ischemic heart disease and other diseases of the circulatory system; Z83.3 Family history of diabetes mellitus; Z79.84 Long term (current) use of oral hypoglycemic drugs; R74.8 Abnormal levels of other serum enzymes; D72.810 Lymphocytopenia; I48.0 Paroxysmal atrial fibrillation; Z68.31 Body mass index [BMI] 31.0-31.9, adult

== ENCOUNTER → 2019-01-18 | Outpatient (CLI) | payer MEDICARE ==
[~2019-01-18] MED LIST changes: +ARGINAID POWDE1 EACH PO; +ASPIRIN ADULT L81 M2 PO; +AUGMENTIN 500500 M1 PO; +DIFLUCAN50 MG PO; +LANTUS SOL100 UNIT/1 SQ; +PRILOSEC20 M1 PO; +REPATHA SY140 MG/1 M SQ; +TYLENOL325 M1 PO; +ZOFRAN4 MG PO
[2019-01-18 11:30] LABS: BASO % 0.2 % (0.0-1.0); EOS # 0.1 10*3/uL (0.0-0.4); EOS % 1.1 % (1.0-4.0); HEMATOCRIT 42.9 % (37.0-47.0); HEMOGLOBIN 13.2 g/dl (12.0-16.0); LYMPH # 1.2 10*3/uL (1.3-4.4); LYMPH % 10.5 % (27.0-41.0); MEAN CELL VOLUME 88.5 fl (81.0-99.0); MEAN CORPUSCULAR HGB 27.2 pg (27.0-31.0); MEAN CORPUSCULAR HGB CONC 30.8 g/dl (33.0-37.0); MEAN PLATELET VOLUME 10.9 fl (9.6-12.3); MONO # 0.8 10*3/uL (0.1-1.0); MONO % 7.3 % (3.0-9.0); NEUT # 9.2 10*3/uL (2.3-7.9); NEUT % 80.5 % (47.0-73.0); PLATELET COUNT AUTOMATED 287 10*3/uL (130-400); RED BLOOD COUNT 4.85 10*6/uL (4.10-5.10); RED CELL DISTRI WIDTH 16.9 % (0-14.5); WHITE BLOOD COUNT 11.4 10*3/uL (4.8-10.8)
[2019-01-18 11:42] LABS: ALBUMIN 3.1 gm/dl (3.1-4.5); CREATININE 1.1 mg/dL (0.55-1.02); POTASSIUM 4.4 mmol/L (3.5-5.1); TOTAL PROTEIN 7.6 gm/dL (6.4-8.2)
== END | disposition home or self-care (01) ==
LOC: LAB 10:45
PROVIDERS: Nurse Practitioner Family
DX: J43.9 Emphysema, unspecified (principal); I12.9 Hypertensive chronic kidney disease with stage 1 through stage 4 chronic kidney disease, or unspecified chronic kidney disease; E11.22 Type 2 diabetes mellitus with diabetic chronic kidney disease; N18.4 Chronic kidney disease, stage 4 (severe); E78.2 Mixed hyperlipidemia; L89.153 Pressure ulcer of sacral region, stage 3; H10.31 Unspecified acute conjunctivitis, right eye